=== PATIENT | female | born 1990 | race Caucasian/White ===

== ENCOUNTER 2017-03-18 14:11 | Inpatient (IN) | payer BC, OTHER ==
[~2017-03-18] VITALS: Ht 162.6 cm; Wt 72.5 kg
[2017-03-18] MEDS ORDERED: SOD CHLORIDE 0.9% 1,000 ML IV STA (14:39)
[2017-03-18] MEDS ORDERED: ONDANSETRON 4 MG INJ IV STA (14:39)
[2017-03-18 15:01] LABS: ADD SCAN DIFF NO
[2017-03-18 15:02] LABS: BASOPHILS % 0.3 % (0.0-2.0); HEMATOCRIT 52.6 % (37.0-47.0); HEMOGLOBIN 17.8 g/dl (12.0-16.0); LYMPHOCYTES % 31.3 % (15.0-51.0); MEAN CORPUSCULAR HEMOGLOBIN 32.2 pg (29.0-33.0); MEAN CORPUSCULAR HGB CONC 33.8 g/dl (32.0-37.0); MEAN CORPUSCULAR VOLUME 95.1 fl (82.0-101.0); MEAN PLATELET VOLUME 12.1 fl (7.4-10.4); MONOCYTE # 0.3 10^3/ul (0.3-0.9); MONOCYTES % 10.7 % (0.0-11.0); NEUTROPHIL # 1.8 10^3/ul (1.6-7.5); NEUTROPHILS % 57.4 % (39.0-77.0); PLATELET COUNT 181 10^3/UL (140-415); RED BLOOD COUNT 5.53 10^6/ul (4.20-5.40); RED CELL DISTRIBUTION WIDTH 11.8 % (11.5-14.5); WHITE BLOOD COUNT 3.1 10^3/ul (4.8-10.8)
[2017-03-18 15:30] LABS: ALBUMIN/GLOBULIN RATIO 1.11; BILIRUBIN,INDIRECT 0.3 mg/dl (0-1.1); BILIRUBIN,TOTAL 0.3 mg/dl (0.2-1.3); CALCIUM 9.9 mg/dl (8.4-10.2); CREATININE 0.87 mg/dl (0.44-1.00); POTASSIUM 4.8 mmol/L (3.5-5.1); TOTAL PROTEIN 9.5 g/dl (6.1-8.1)
--- NOTE | 2017-03-18 15:46 | RADRPT ---
PROCEDURE: Chest x-ray CLINICAL INDICATION: Abdominal pain TECHNIQUE: Chest single view COMPARISON: None FINDINGS: The heart is normal in size. The pulmonary vessels are normal in caliber. The lungs are clear. Th e costophrenic angles are sharp. The visualized bony thorax is unremarkable. IMPRESSION: No acute cardiopulmonary disease. There is no free air under the diaphragms RPTAT: HH .Manuel Nelson MD, Date Time Electronically viewed and signed by .Manuel Nelson MD, on 03/18/2017 15:46 .W/
[2017-03-18] MEDS ORDERED: METOCLOPRAMIDE 10 MG INJ IV ONE (16:00)
[2017-03-18 16:03] LABS: ADD UMIC YES; UR ASCORBIC ACID NEGATIVE (NEGATIVE); UR BILIRUBIN (Dip) NEGATIVE (NEGATIVE); UR BLOOD (Dip) 3+ mg/dL (NEGATIVE); UR CLARITY SLIGHTLY CLOUDY (CLEAR); UR COLOR YELLOW (YELLOW); UR GLUCOSE (Dip) 3+ mg/dL (NEGATIVE); UR KETONES (Dip) 2+ mg/dL (NEGATIVE); UR LEUKOCYTE ESTERASE (Dip) NEGATIVE Leu/ul (NEGATIVE); UR NITRITE (Dip) NEGATIVE (NEGATIVE); UR RBC 3 /HPF (0-5); UR SPECIFIC GRAVITY (Dip) 1.026 (1.003-1.030); UR TOTAL PROTEIN (Dip) 2+ mg/dl (NEGATIVE); UR UROBILINOGEN (Dip) NEGATIVE (NEGATIVE)
[2017-03-18] MEDS ORDERED: SOD CHLORIDE 0.9% 1,000 ML IV SCH ×2 (16:14→19:09)
[2017-03-18] MEDS ORDERED: INSULIN HUMAN REGULAR 100 UNIT in SOD CHLORIDE 0.9% 99 ML IV STA (16:14)
--- NOTE | 2017-03-18 16:20 | ERA ---
ER Documentation Chief Complaint Date/Time DATE: 03/18/17 TIME: 16:18 Chief Complaint flu like symptoms, saw pmd yesterday c/o same, body aches, vomiting today HPI Patient is a 26-year-old female who presents with gradual onset, constant, progressive sore throat associated with occipital headache, vomiting, and neck stiffness. She also reports having burning sensation to her eyes. She denies cough, fever, diarrhea. She denies abdominal pain. She saw her suction drum drier operator yesterday, and was prescribed azithromycin. She called him again today, and he told her to come to the ER to rule out meningitis. ROS All systems reviewed and are negative except as per history of present illness. Medications Home Meds Reported Medications Azithromycin* (Azithromycin*) 250 Mg Tablet, 250 MG PO DAILY, #4 TAB TAKE 2 TAB -1 DAY 1 TAB DAILY 03/18/17 Ondansetron Hcl* (Ondansetron Hcl*) 8 Mg Tablet, 8 MG PO TID Y for NAUSEA AND OR VOMITING, TAB 03/18/17 Insulin Glargine,Hum.rec.anlog (Toujeo Solostar) 300 Unit/1 Ml Insuln.pen, 18 UNIT SQ QAM 03/18/17 Insulin Aspart* (Novolog Insulin Pen*) 100 Unit/Ml Soln, 0 SC .SLIDING SCALE AC , EA 3-4 UNITS TID WITH MEALS 03/18/17 Allergies Allergies: Coded Allergies: No Known Allergy (Unverified , 03/18/17) PMhx/Soc Past medical history: Type 1 diabetes Past surgical history: Tonsillectomy, adenoidectomy Social history: Denies tobacco, alcohol or illicit drugs. Medical and Surgical Hx: pt denies Surgical Hx Hx Miscellaneous Medical Probl: Yes (dm1) Hx Alcohol Use: No Hx Substance Use: No Hx Tobacco Use: No Smoking Status: Never smoker FmHx Family History: No coronary disease, No diabetes Physical Exam Vitals Vital Signs Date Time Temp Pulse Resp B/P Pulse Ox O2 Delivery O2 Flow Rate FiO2 03/18/17 18:30 99.0 78 16 118/76 99 Room Air 03/18/17 18:13 99.0 78 16 114/76 99 Room Air 03/18/17 15:18 99.2 03/18/17 14:16 98.5 110 18 140/74 99 Physical Exam Const: Alert, no acute distress Head: Atraumatic Eyes: Normal Conjunctiva, no pallor, no icterus, no injection ENT: Normal External Ears, Nose and Mouth. Tacky mucous membranes Neck: Limited neck flexion. No meningismus. No paraspinal tenderness or spasm noted. Resp: Clear to auscultation bilaterally, no wheezes, no rales Cardio: Mild tachycardia, regular rhythm, no murmurs Abd: Soft, non tender, non distended. Skin: No petechiae or rashes Back: No midline or flank tenderness Ext: No cyanosis, or edema Neur: Awake and alert, cranial nerves II through XII intact bilaterally, strength and sensation full in 4 extremities. Psych: Normal Mood and Affect Result Diagram: 03/18/17 1450 03/18/17 1900 Results 24 hrs Laboratory Tests Test 03/18/17 14:50 03/18/17 14:54 03/18/17 14:57 03/18/17 17:08 White Blood Count 3.110^3/ul Red Blood Count 5.5310^6/ul Hemoglobin 17.8g/dl Hematocrit 52.6% Mean Corpuscular Volume 95.1fl Mean Corpuscular Hemoglobin 32.2pg Mean Corpuscular Hemoglobin Concent 33.8g/dl Red Cell Distribution Width 11.8% Platelet Count 09274^3/UL Mean Platelet Volume 12.1fl Neutrophils % 57.4% Lymphocytes % 31.3% Monocytes % 10.7% Eosinophils % 0.0% Basophils % 0.3% Nucleated Red Blood Cells % 0.0/100WBC Neutrophils # 1.810^3/ul Lymphocytes # 1.010^3/ul Monocytes # 0.310^3/ul Eosinophils # 0.010^3/ul Basophils # 0.010^3/ul Nucleated Red Blood Cells # 0.010^3/ul Prothrombin Time 12.7Sec Prothrombin Time Ratio 1.0 INR International Normalized Ratio 0.95 Sodium Level 141mmol/L Potassium Level 4.8mmol/L Chloride Level 99mmol/L Carbon Dioxide Level 9mmol/L Anion Gap 38 Blood Urea Nitrogen 8mg/dl Creatinine 0.87mg/dl Glucose Level 346mg/dl Hemoglobin A1c 10.9% Calcium Level 9.9mg/dl Phosphorus Level 4.4mg/dl Total Bilirubin 0.3mg/dl Direct Bilirubin 0.00mg/dl Indirect Bilirubin 0.3mg/dl Aspartate Amino Transf (AST/SGOT) 23IU/L Alanine Aminotransferase (ALT/SGPT) 26IU/L Alkaline Phosphatase 80IU/L Total Protein 9.5g/dl Albumin 5.0g/dl Globulin 4.50g/dl Albumin/Globulin Ratio 1.11 Lipase 26U/L Monoscreen Negative Bedside Glucose 300mg/dL 291mg/dL Urine Color YELLOW Urine Clarity SLIGHTLY CLOUDY Urine pH 5.0 Urine Specific [place] 1.026 Urine Ketones 2+mg/dL Urine Nitrite NEGATIVEmg/dL Urine Bilirubin NEGATIVEmg/dL Urine Urobilinogen NEGATIVEmg/dL Urine Leukocyte Esterase NEGATIVELeu/ul Urine Microscopic RBC 3/HPF Urine Microscopic WBC 1/HPF Urine Hemoglobin 3+mg/dL Urine Glucose 3+mg/dL Urine Total Protein 2+mg/dl Test 03/18/17 17:30 03/18/17 18:06 03/18/17 19:00 03/18/17 19:24 Acetone Level (Chemistry) Bedside Glucose 250mg/dL Sodium Level 143mmol/L Potassium Level 5.0mmol/L Chloride Level 110mmol/L Carbon Dioxide Level < 5mmol/L Anion Gap 33 Blood Urea Nitrogen 7mg/dl Creatinine 0.80mg/dl Glucose Level 303mg/dl Calcium Level 7.9mg/dl Phosphorus Level 3.4mg/dl Free Thyroxine 1.19ng/dl Pathologist Review (Hematology) CSF Tubes Submitted 4 CSF Volume 5.5ml CSF Appearance CLEAR CSF Color COLORLESS CSF WBC 2/cmm CSF RBC 0/uL CSF Cell Count Tube # TUBE#4 CSF Mononuclear Cells % (Auto) % CSF Polynuclear WBCs (%) % CSF Glucose 200mg/dl CSF Total Protein 55mg/dl Path Consult Signing Pathologist Test 03/18/17 19:32 Bedside Glucose 221mg/dL Current Medications Medications (Trade) Dose Ordered Sig/Jarod Route PRN Reason Start Time Stop Time Status Last Admin Dose Admin Sodium Chloride (NS) 1,000 ml @ 1,000 mls/hr Q1H STAT IV 03/18/17 14:39 03/18/17 15:38 DC 03/18/17 15:06 Ondansetron HCl (Zofran Inj) 4 mg ONCE STAT IV 03/18/17 14:39 03/18/17 14:41 DC 03/18/17 15:05 Metoclopramide HCl (Reglan) 10 mg ONCE ONCE IV 03/18/17 16:00 03/18/17 16:01 DC 03/18/17 16:14 Dextrose (D50w Syringe) 50 ml Q15M PRN IV For BS 50 or less 03/18/17 16:30 03/18/17 19:17 DC Dextrose 25 ml 25 ml Q15M PRN IV BS between 50-70 03/18/17 16:30 03/18/17 19:17 DC Sodium Chloride 1,000 ml @ 1,000 mls/hr Q1H IV 03/18/17 16:14 03/18/17 17:13 DC 03/18/17 17:04 Lactated Ringer's 1,000 ml @ 1,000 mls/hr Q1H IV 03/18/17 17:14 03/18/17 18:13 DC 03/18/17 17:31 Potassium Chloride 20 meq/ Sodium Chloride 1,010 ml @ 500 mls/hr Q2H2M IV 03/18/17 18:14 03/18/17 20:13 DC 03/18/17 20:17 Insulin Human Regular/Sodium Chloride (Novolin-R/NS) 100 ml @ 0 mls/hr DKA PROTOCOL STAT IV 03/18/17 16:14 03/18/17 16:22 DC 03/18/17 17:08 Diagnostic Test (Pha) (Accu-Chek) 1 ea Q1H XX 03/18/17 16:30 03/18/17 19:16 DC 03/18/17 17:08 Miscellaneous Information (* Miscellaneous Pharmacy Order) HYPOGLYCEMIA TREATMENT HYPOGLYCEM PROTOCOL PRN XX Hypoglycemia (BS < 70) 03/18/17 16:30 03/18/17 19:17 DC IV Flush (NS 3 ml) 3 ml PER PROTOCOL IV 03/18/17 19:30 Ondansetron HCl (Zofran Inj) 4 mg Q6H PRN IV NAUSEA AND/OR VOMITING 03/18/17 19:30 Acetaminophen (Tylenol Tab) 650 mg Q6H PRN PO PAIN LEVEL 1-3 OR FEVER 03/18/17 19:30 Acetaminophen/ Hydrocodone Bitart ([place] (5/325)) 1 tab Q6H PRN PO MODERATE PAIN LEVEL 4-6 03/18/17 19:30 Morphine Sulfate (morphine) 2 mg Q4H PRN IV SEVERE PAIN LEVEL 7-10 03/18/17 19:30 Docusate Sodium (Colace) 100 mg Q12H PRN PO CONSTIPATION 03/18/17 19:30 Magnesium Hydroxide (Milk Of Mag) 30 ml DAILY PRN PO CONSTIPATION 03/18/17 19:30 Sodium Biphosphate/ Sodium Phosphate (Fleet Enema) 133 ml DAILY PRN [place] CONSTIPATION 03/18/17 19:30 Heparin Sodium (Porcine) (Heparin (5000 Units/0.5 ml)) 5,000 unit Q12 SC 03/18/17 21:00 Lorazepam (Ativan) 0.5 mg Q6H PRN IV ANXIETY 03/18/17 19:30 Albuterol/ Ipratropium (Duoneb) 3 ml Q4H RESP THERAPY PRN HHN SHORTNESS OF BREATH 03/18/17 19:30 Hydralazine HCl (Apresoline) 10 mg Q6H PRN IV ELEVATED BLOOD PRESSURE 03/18/17 19:30 Nitroglycerin (Nitroglycerin (Sl Tab) 0.4 Mg) 1 tab Q5M PRN SL ANGINA 03/18/17 19:30 Dextrose (D50w Syringe) 50 ml Q15M PRN IV For BS 50 or less 03/18/17 19:30 Dextrose 25 ml 25 ml Q15M PRN IV BS between 50-70 03/18/17 19:30 Sodium Chloride 1,000 ml @ 1,000 mls/hr Q1H IV 03/18/17 19:09 03/18/17 20:08 DC 03/18/17 20:17 Lactated Ringer's 1,000 ml @ 1,000 mls/hr Q1H IV 03/18/17 20:09 03/18/17 21:08 Potassium Chloride 10 meq/ Sodium Chloride 1,005 ml @ 500 mls/hr Q2H1M IV 03/18/17 21:09 03/18/17 23:08 Insulin Human Regular/Sodium Chloride (Novolin-R/NS) 100 ml @ 0 mls/hr DKA PROTOCOL IV 03/18/17 19:30 Diagnostic Test (Pha) (Accu-Chek) 1 ea Q1H XX 03/18/17 19:30 03/18/17 19:30 Miscellaneous Information HYPOGLYCEMIA TREATMENT HYPOGLYCEM PROTOCOL PRN XX Hypoglycemia (BS < 70) 03/18/17 19:30 Potassium Chloride (KCl 10 MEQ/50 ML SW) 50 ml @ 50 mls/hr K PROTOCOL PRN IVPB PENDING LAB VALUE 03/18/17 19:30 Procedures/MDM MDM: Patient is a 26-year-old female sent to the ER by her suction drum drier operator for complaint of headache with neck stiffness. The patient was seen in the clinic yesterday, and was given a prescription for azithromycin for presumed URI. When the patient called her suction drum drier operator to state that her symptoms were worse today, he advised her to go to the emergency department. In the ER, the patient was found to be mildly tachycardic. She did not have full range of motion of her neck. She was afebrile, and did not have leukocytosis. Lumbar puncture was performed and shows no evidence of meningitis. The patient's labs do show evidence of diabetic ketoacidosis. The patient was given IV fluids and started on an insulin drip. She was given supplemental potassium. She will be admitted to the ICU for further management of her DKA. There is no evidence of urinary tract infection or other acute infection. Lumbar Puncture by me: Patient consented, time out performed, sterilely prepped/draped, anesthetized locally. Anesthesia: 1% lidocaine locally Location: One interspace below the iliac crest Technique: 20 gauge needle with stylet for entry and removal of needle Results: Clear CSF fluid No post procedure complications, bleeding, numbness or weakness. Critical Care Time: 35 minutes Treatments/Evaluations: Close monitoring and treatment of unstable vital signs, cardiorespiratory, and neurologic status, while maintaining tight balance of fluid, respiratory, and cardiac interventions. This time includes discussing the case with the patient and the patient's family. This time does not include all procedures stated elsewhere in this record. This time also includes reviewing old records, labs and radiological studies. This time includes examining and re-examining the patient. Additionally, this time also includes arranging care with admitting and consulting physicians. Departure Diagnosis: Primary Impression: Diabetic ketoacidosis Qualified Code: E10.10 - Diabetic ketoacidosis without coma associated with type 1 diabetes mellitus Additional Impressions: Influenza-like syndrome Headache Qualified Code: R51 - Acute nonintractable headache, unspecified headache type Condition: LOIDA Hill MD Mar 18, 2017 16:20
[2017-03-18] MEDS ORDERED: ACCU-CHEK XX SCH (16:30)
[2017-03-18] MEDS ORDERED: DEXTROSE 50% 50 ML SYRINGE IV PRN ×4 (16:30→19:30)
[2017-03-18 16:47] LABS: INR 0.95; PROTIME 12.7 Sec (12.2-14.2)
[2017-03-18] MEDS ORDERED: NOVO3I SC (17:05)
[2017-03-18] MEDS ORDERED: INSU300I SQ (17:06)
[2017-03-18] MEDS ORDERED: ONDA8TAB83 PO (17:06)
[2017-03-18] MEDS ORDERED: AZIT250T6 PO (17:09)
[2017-03-18] MEDS ORDERED: LACTATED RINGER'S 1,000 ML IV SCH ×2 (17:14→20:09)
[2017-03-18] MEDS ORDERED: POTASSIUM CHLORIDE 20 MEQ in SOD CHLORIDE 0.9% 1,000 ML IV SCH (18:14)
--- NOTE | 2017-03-18 18:23 | RADRPT ---
PROCEDURE: CT brain without contrast CLINICAL INDICATION: Headache TECHNIQUE: CT of the brain without contrast was performed on a multidetector CT scanner, with multi planar reformats. One or more of the following dose reduction techniques were used: Automated expos ure control, adjustment in mA and / or kV according to patient size, use of iterative reconstructive technique. CTDIvol = 44 mGy; DLP = 630 mGy-cm. COMPARISON: None available FINDINGS: No acute intracranial hemorrhage is identified. No extra-axial fluid collection is seen. There is no mass effect. No midline shift is identified. Ventricles and sulci are within normal limits for size and configuration. The density of the brain is within normal limits. Mcneil-white differentiation is preserved. Osseous structures are unremarkable. Mastoid air cells and imaged paranasal sinuses grossly clear. IMPRESSION: Unremarkable noncontrast CT of the brain. RPTAT: VV .Myron Bravo MD, Date Time Electronically viewed and signed by .Myron Bravo MD, MD on 03/18/2017 18:23 .O/
[2017-03-18] MEDS ORDERED: LORAZEPAM 2 MG INJ IV PRN (19:30)
[2017-03-18] MEDS ORDERED: NITROGLYCERIN (SL) 0.4 MG TAB SL PRN (19:30)
[2017-03-18] MEDS ORDERED: ALBUTEROL/IPRATROPIUM (NEB) 3 ML AMP HHN PRN (19:30)
[2017-03-18] MEDS ORDERED: NA PHOSPHATE/BIPHOS 133 ML ENEMA PR PRN (19:30)
[2017-03-18] MEDS ORDERED: hydrALAzine 20 MG INJ IV PRN (19:30)
[2017-03-18] MEDS ORDERED: MAGNESIUM HYDROXIDE 30ML CUP PO PRN (19:30)
[2017-03-18] MEDS ORDERED: ACETAMINOPHEN 325 MG TAB PO PRN (19:30)
[2017-03-18] MEDS ORDERED: ONDANSETRON 4 MG INJ IV PRN (19:30)
[2017-03-18] MEDS: ACCU-CHEK XX SCH ×4 (19:30→23:51)
[2017-03-18] MEDS ORDERED: morphine 2 MG INJ IV PRN (19:30)
[2017-03-18] MEDS ORDERED: INSULIN HUMAN REGULAR 100 UNIT in SOD CHLORIDE 0.9% 99 ML IV SCH (19:30)
[2017-03-18] MEDS ORDERED: HYDROCODONE/APAP (5/325) TAB PO PRN (19:30)
[2017-03-18] MEDS ORDERED: POTASSIUM CHLORIDE 50 ML IVPB PRN (19:30)
[2017-03-18] MEDS ORDERED: NACL 0.9% 3 ML SYG IV SCH (19:30)
[2017-03-18] MEDS ORDERED: DOCUSATE SODIUM 100 MG CAP PO PRN (19:30)
[2017-03-18 19:32] LABS: PATH REVIEW? NO
[2017-03-18 19:39] LABS: BLOOD UREA NITROGEN 7 mg/dl (7-20); CALCIUM 7.9 mg/dl (8.4-10.2); CHLORIDE 110 mmol/L (97-110); GLUCOSE 303 mg/dl (70-220); SODIUM 143 mmol/L (135-144)
[2017-03-18 19:48] LABS: GLUCOSE,CSF 200 mg/dl (50-80)
[2017-03-18 19:57] LABS: CSF COLOR COLORLESS; CSF VOLUME 5.5 ml; CSF#TUBE COUNT TUBE#4; CSF#TUBES REC'D 4
[2017-03-18 20:14] LABS: ANION GAP 33 (8-16)
[2017-03-18 20:16] LABS: CARBON DIOXIDE < 5 mmol/L (21-31)
[2017-03-18] MEDS ORDERED: DEXTROSE 5%-0.45% NACL 1,000 ML IV STA (20:56)
[2017-03-18] MEDS: HEPARIN 5,000 UNIT/0.5 ML VIAL SC SCH (21:05)
[2017-03-18] MEDS ORDERED: POTASSIUM CHLORIDE 10 MEQ in SOD CHLORIDE 0.9% 1,000 ML IV SCH (21:09)
[2017-03-19] VITALS (13 sets, daily range): BP systolic 96–122; BP diastolic 58–80; PULSE 80–100; RESP 17–27; TEMP 98.3; Ht 162.6 cm; Wt 72.5 kg
[2017-03-19] MEDS ORDERED: FAMOTIDINE 20 MG INJ IV ONE
[2017-03-19] MEDS: ACCU-CHEK XX SCH ×21 (00:30→22:18)
[2017-03-19 04:53] LABS: ADD SCAN DIFF NO
[2017-03-19 04:55] LABS: BASOPHILS % 0.3 % (0.0-2.0); HEMATOCRIT 37.4 % (37.0-47.0); LYMPHOCYTES # 1.7 10^3/ul (0.8-2.9); LYMPHOCYTES % 49.9 % (15.0-51.0); MEAN CORPUSCULAR HEMOGLOBIN 32.3 pg (29.0-33.0); MEAN CORPUSCULAR HGB CONC 34.8 g/dl (32.0-37.0); MEAN CORPUSCULAR VOLUME 92.8 fl (82.0-101.0); MEAN PLATELET VOLUME 11.7 fl (7.4-10.4); MONOCYTE # 0.4 10^3/ul (0.3-0.9); MONOCYTES % 11.6 % (0.0-11.0); NEUTROPHIL # 1.3 10^3/ul (1.6-7.5); NEUTROPHILS % 37.9 % (39.0-77.0); PLATELET COUNT 144 10^3/UL (140-415); RED BLOOD COUNT 4.03 10^6/ul (4.20-5.40); WHITE BLOOD COUNT 3.4 10^3/ul (4.8-10.8)
[2017-03-19 05:12] LABS: CHOL/HDL RATIO 5.5 RATIO
[2017-03-19 05:16] LABS: CALCIUM 7.9 mg/dl (8.4-10.2); CREATININE 0.53 mg/dl (0.44-1.00); MAGNESIUM 1.7 mg/dl (1.7-2.5); PHOSPHORUS 1.4 mg/dl (2.5-4.9); POTASSIUM 3.2 mmol/L (3.5-5.1)
[2017-03-19 05:44] LABS: THYROID STIMULATING HORMONE 5.01 MIU/L (0.465-4.680)
[2017-03-19 05:48] LABS: AADO2 Arterial 7.5 mmHg (7.0-24.0); Allen Test ACCEPTAB; Arterial Base Excess -10.6 mmol/L (-3.0-3); Arterial COHb 0.3 % (0.0-3.0); Arterial Fraction of Oxyhgb 97.3 % (93.0-99.0); Arterial MetHb 0.4 % (0.0-1.5); Arterial Total Hemglobin 13.9 g/dl (12.0-18.0); MODE ROOM AIR
--- NOTE | 2017-03-19 08:21 | HP ---
Date/Time of Note Date/Time of Note DATE: 03/19/17 TIME: 08:19 Assessment/Plan Assessment/Plan Assessment/Plan IMPRESSION 1. DKA 2. Headache and neck stiffness: ruled-out meningitis PLAN cont DKA protocol correct electrolytes as needed pain mgmt HPI/ROS Admit Date/Time Admit Date/Time Hx of Present Illness This is a 26 yo female who was sent by her transfer station attendant for eval of meningitis. She c/o generalized bodyache, headache, neck stiffness. In ER, she is found to be in DKA. Head CT is unremarkable. LP was done and is not consistent with meningitis. she has been started on DKA protocol. . PMH/Family/Social Social History Smoking Status: Never smoker Exam/Review of Systems Vital Signs Vitals Vital Signs Date Time Temp Pulse Resp B/P Pulse Ox O2 Delivery O2 Flow Rate FiO2 03/19/17 08:00 98.3 81 16 103/63 99 Room Air Intake and Output 03/18/17 03/18/17 03/19/17 15:00 23:00 07:00 Intake Total 4000 ml Balance 4000 ml Labs Result Diagram: 03/19/17 0442 03/19/17 0442 Medications Medications Current Medications Ondansetron HCl (Zofran Inj) 4 mg Q6H PRN IV NAUSEA AND/OR VOMITING; Start at 19:30 Acetaminophen (Tylenol Tab) 650 mg Q6H PRN PO PAIN LEVEL 1-3 OR FEVER; Start at 19:30 Acetaminophen/ Hydrocodone Bitart ([place] (5/325)) 1 tab Q6H PRN PO MODERATE PAIN LEVEL 4-6; Start 03/18/17 at 19:30 Morphine Sulfate (morphine) 2 mg Q4H PRN IV SEVERE PAIN LEVEL 7-10; Start 03/18 at 19:30 Docusate Sodium (Colace) 100 mg Q12H PRN PO CONSTIPATION; Start 03/18/17 at 19: 30 Magnesium Hydroxide (Milk Of Mag) 30 ml DAILY PRN PO CONSTIPATION; Start at 19:30 Sodium Biphosphate/ Sodium Phosphate (Fleet Enema) 133 ml DAILY PRN [place] CONSTIPATION; Start 03/18/17 at 19:30 Heparin Sodium (Porcine) (Heparin (5000 Units/0.5 ml)) 5,000 unit Q12 SC Last administered on 03/18/17 21:05; Admin Dose 5,000 UNIT; Start 03/18/17 at 21:00 Lorazepam (Ativan) 0.5 mg Q6H PRN IV ANXIETY; Start 03/18/17 at 19:30 Hydralazine HCl (Apresoline) 10 mg Q6H PRN IV ELEVATED BLOOD PRESSURE; Start at 19:30 Nitroglycerin (Nitroglycerin (Sl Tab) 0.4 Mg) 1 tab Q5M PRN SL ANGINA; Start at 19:30 Dextrose (D50w Syringe) 50 ml Q15M PRN IV For BS 50 or less Last administered on 03/19/17 06:31; Admin Dose 50 ML; Start 03/18/17 at 19:30 Dextrose (D50w Syringe) 25 ml Q15M PRN IV BS between 50-70; Start 03/18/17 at 19:30 Diagnostic Test (Pha) (Accu-Chek) 1 ea Q1H XX Last administered on 03/19/17 06 :05; Admin Dose 1 EA; Start 03/18/17 at 19:30 JANIE LINARES MD Mar 19, 2017 08:20
[2017-03-19] MEDS: HEPARIN 5,000 UNIT/0.5 ML VIAL SC SCH ×2 (09:40→21:52)
--- NOTE | 2017-03-19 14:24 | PN ---
Date/Time of Note Date/Time of Note DATE: 03/19/17 TIME: 14:20 Assessment/Plan VTE Prophylaxis VTE Prophylaxis Intervention: heparin Assessment/Plan Chief Complaint/Hosp Course Assessment and plan: 26 yo female who was sent by her electric screw driver operator for eval of meningitis after complaining of bodyache, headache, neck stiffness, and also found this admission with DKA. 1. Headache/neck stiffness: Lumbar puncture was performed. Only abnormalities were slightly elevated glucose levels. Patient possibly could be suffering from aseptic meningitis. -Continue pain control medications, IV fluids, monitor for now. If there are any further abnormality such as fever or worsening symptoms, consider infectious disease consult. Follow final culture results 2. Elevated blood sugars: Patient had signs of DKA. Has been placed on IV insulin. -Continue to treat elevated blood sugars and monitor basic metabolic panel including anion gap -Follow-up A1c, consider endocrinology consult. 3. GI prophylaxis: PPI Problems: Subjective 24 Hr Interval Summary Free Text/Dictation Patient still complaining of headache symptoms. No acute events overnight otherwise. Does admit to recent travel in [place] and [facility] including being outdoors. Denies any sick contacts however Exam/Review of Systems Vital Signs Vitals Vital Signs Date Time Temp Pulse Resp B/P Pulse Ox O2 Delivery O2 Flow Rate FiO2 03/19/17 14:03 90 16 127/89 99 Room Air 03/19/17 08:00 98.3 Intake and Output 03/18/17 03/18/17 03/19/17 15:00 23:00 07:00 Intake Total 4000 ml Balance 4000 ml Exam Const: Alert, answering questions, in mild distress complaining of some headache. Head: Atraumatic Eyes: Normal Conjunctiva, no pallor, no icterus, no injection ENT: Normal External Ears, Nose and Mouth. Tacky mucous membranes Neck: Limited neck flexion. No meningismus. No paraspinal tenderness or spasm noted. Resp: Clear to auscultation bilaterally, no wheezes, no rales Cardio: Mild tachycardia, regular rhythm, no murmurs Abd: Soft, non tender, non distended. Skin: No petechiae or rashes Back: No midline or flank tenderness Ext: No cyanosis, or edema Neur: Awake and alert, cranial nerves II through XII intact bilaterally, strength and sensation full in 4 extremities. Psych: Normal Mood and Affect Results Result Diagram: 03/19/17 9902 03/19/17 0442 Results 24 hrs Laboratory Tests Test 03/18/17 14:50 03/18/17 14:54 03/18/17 14:57 03/18/17 17:08 White Blood Count 3.1 L Red Blood Count 5.53 H Hemoglobin 17.8 H Hematocrit 52.6 H Mean Corpuscular Volume 95.1 Mean Corpuscular Hemoglobin 32.2 Mean Corpuscular Hemoglobin Concent 33.8 Red Cell Distribution Width 11.8 Platelet Count 181 Mean Platelet Volume 12.1 H Neutrophils % 57.4 Lymphocytes % 31.3 Monocytes % 10.7 Eosinophils % 0.0 Basophils % 0.3 Nucleated Red Blood Cells % 0.0 Neutrophils # 1.8 Lymphocytes # 1.0 Monocytes # 0.3 Eosinophils # 0.0 Basophils # 0.0 Nucleated Red Blood Cells # 0.0 Prothrombin Time 12.7 Prothrombin Time Ratio 1.0 INR International Normalized Ratio 0.95 Sodium Level 141 Potassium Level 4.8 Chloride Level 99 Carbon Dioxide Level 9 *L Anion Gap 38 H Blood Urea Nitrogen 8 Creatinine 0.87 Glucose Level 346 H Hemoglobin A1c 10.9 H Calcium Level 9.9 Phosphorus Level 4.4 Total Bilirubin 0.3 Direct Bilirubin 0.00 Indirect Bilirubin 0.3 Aspartate Amino Transf (AST/SGOT) 23 Alanine Aminotransferase (ALT/SGPT) 26 Alkaline Phosphatase 80 Total Protein 9.5 H Albumin 5.0 H Globulin 4.50 H Albumin/Globulin Ratio 1.11 Lipase 26 Monoscreen Negative Bedside Glucose 300 H 291 H Urine Color YELLOW Urine Clarity SLIGHTLY CLOUDY A Urine pH 5.0 Urine Specific [place] 1.026 Urine Ketones 2+ H Urine Nitrite NEGATIVE Urine Bilirubin NEGATIVE Urine Urobilinogen NEGATIVE Urine Leukocyte Esterase NEGATIVE Urine Microscopic RBC 3 Urine Microscopic WBC 1 Urine Hemoglobin 3+ H Urine Glucose 3+ H Urine Total Protein 2+ H Test 03/18/17 17:30 03/18/17 18:06 03/18/17 19:00 03/18/17 19:24 Acetone Level (Chemistry) Bedside Glucose 250 H Sodium Level 143 Potassium Level 5.0 Chloride Level 110 # Carbon Dioxide Level < 5 *L Anion Gap 33 H Blood Urea Nitrogen 7 Creatinine 0.80 Glucose Level 303 H Calcium Level 7.9 L Phosphorus Level 3.4 Free Thyroxine 1.19 Pathologist Review (Hematology) CSF Tubes Submitted 4 CSF Volume 5.5 CSF Appearance CLEAR CSF Color COLORLESS CSF WBC 2 CSF RBC 0 CSF Cell Count Tube # TUBE#4 CSF Mononuclear Cells % (Auto) CSF Polynuclear WBCs (%) CSF Glucose 200 H CSF Total Protein 55 Path Consult Signing Pathologist Test 03/18/17 19:32 03/18/17 20:46 03/18/17 22:03 03/18/17 23:47 Bedside Glucose 221 H 189 145 130 Test 03/18/17 23:57 03/19/17 01:25 03/19/17 02:37 03/19/17 04:35 Bedside Glucose 156 120 130 108 Test 03/19/17 04:42 03/19/17 04:43 03/19/17 05:45 03/19/17 06:03 White Blood Count 3.4 L Red Blood Count 4.03 #L Hemoglobin 13.0 # Hematocrit 37.4 # Mean Corpuscular Volume 92.8 Mean Corpuscular Hemoglobin 32.3 Mean Corpuscular Hemoglobin Concent 34.8 Red Cell Distribution Width 12.0 Platelet Count 144 # Mean Platelet Volume 11.7 H Neutrophils % 37.9 L Lymphocytes % 49.9 Monocytes % 11.6 H Eosinophils % 0.0 Basophils % 0.3 Nucleated Red Blood Cells % 0.0 Neutrophils # 1.3 L Lymphocytes # 1.7 Monocytes # 0.4 Eosinophils # 0.0 Basophils # 0.0 Nucleated Red Blood Cells # 0.0 Sodium Level 140 Potassium Level 3.2 L Chloride Level 112 H Carbon Dioxide Level 15 #L Anion Gap 16 # Blood Urea Nitrogen 3 L Creatinine 0.53 Glucose Level 100 # Hemoglobin A1c 11.0 H Calcium Level 7.9 L Phosphorus Level 1.4 #L Magnesium Level 1.7 Triglycerides Level 92 Cholesterol Level 160 LDL Cholesterol, Calculated 113 HDL Cholesterol 29 L Cholesterol/HDL Ratio 5.5 Thyroid Stimulating Hormone (TSH) 5.010 H Blood Gas Specimen Source Blood arterial Arterial Blood Date Drawn 03/19/2017 5:35:27 AM Arterial Blood pH (Temp corrected) 7.315 L Arterial Blood pCO2 (Temp correct) 28.1 L Arterial Blood pO2 (Temp corrected) 108.6 H Arterial Blood HCO3 14.0 L Arterial Blood Base Excess -10.6 L Arterial Blood Oxygen Saturation 98.0 Abhilash Test ACCEPTAB Arterial Blood Gas Puncture Site Right Radial Arterial Blood Carboxyhemoglobin 0.3 Arterial Blood Methemoglobin 0.4 Blood Gas A-a O2 Differential 7.5 Oxyhemoglobin Percent 97.3 Total Hemoglobin 13.9 Blood Gas Temperature 37.0 Blood Gas Modality ROOM AIR FiO2 21.0 Blood Gas Notified Whom UP Blood Gas Notified Time 03/19/2017 5:48:10 AM Bedside Glucose 76 Test 03/19/17 06:24 03/19/17 06:55 03/19/17 08:10 03/19/17 09:21 Bedside Glucose 68 L 165 174 153 Test 03/19/17 11:02 03/19/17 12:22 03/19/17 13:42 Bedside Glucose 182 139 110 Medications Medications Current Medications Ondansetron HCl (Zofran Inj) 4 mg Q6H PRN IV NAUSEA AND/OR VOMITING; Start at 19:30 Acetaminophen (Tylenol Tab) 650 mg Q6H PRN PO PAIN LEVEL 1-3 OR FEVER; Start at 19:30 Acetaminophen/ Hydrocodone Bitart ([place] (5/325)) 1 tab Q6H PRN PO MODERATE PAIN LEVEL 4-6; Start 03/18/17 at 19:30 Morphine Sulfate (morphine) 2 mg Q4H PRN IV SEVERE PAIN LEVEL 7-10; Start 03/18 at 19:30 Docusate Sodium (Colace) 100 mg Q12H PRN PO CONSTIPATION; Start 03/18/17 at 19: 30 Magnesium Hydroxide (Milk Of Mag) 30 ml DAILY PRN PO CONSTIPATION; Start at 19:30 Sodium Biphosphate/ Sodium Phosphate (Fleet Enema) 133 ml DAILY PRN [place] CONSTIPATION; Start 03/18/17 at 19:30 Heparin Sodium (Porcine) (Heparin (5000 Units/0.5 ml)) 5,000 unit Q12 SC Last administered on 03/19/17t 09:40; Admin Dose 5,000 UNIT; Start 03/18/17 at 21:00 Lorazepam (Ativan) 0.5 mg Q6H PRN IV ANXIETY; Start 03/18/17 at 19:30 Hydralazine HCl (Apresoline) 10 mg Q6H PRN IV ELEVATED BLOOD PRESSURE; Start at 19:30 Nitroglycerin (Nitroglycerin (Sl Tab) 0.4 Mg) 1 tab Q5M PRN SL ANGINA; Start at 19:30 Dextrose (D50w Syringe) 50 ml Q15M PRN IV For BS 50 or less Last administered on 03/19/17 06:31; Admin Dose 50 ML; Start 03/18/17 at 19:30 Dextrose (D50w Syringe) 25 ml Q15M PRN IV BS between 50-70; Start 03/18/17 at 19:30 Diagnostic Test (Pha) 1 ea 1 ea Q1H XX Last administered on 03/19/17 13:42; Admin Dose 1 EA; Start 03/18/17 at 19:30 Potassium Phosphate/Sodium Chloride (K Phos (Meq)/NS) 263.6364 ml @ 65.909 m... ONCE ONCE IVPB ; Start 03/19/17 at 14:30; Stop 03/19/17 at 18:29; Status SHAHZAD APONTE Mar 19, 2017 14:24
[2017-03-19] MEDS ORDERED: GUAIFENESIN 20 MG/ML 5ML CUP PO PRN (15:30)
[2017-03-19 15:51] LABS: ANION GAP 17 (8-16); CALCIUM 8.5 mg/dl (8.4-10.2); CARBON DIOXIDE 17 mmol/L (21-31); CHLORIDE 111 mmol/L (97-110); CREATININE 0.54 mg/dl (0.44-1.00); GLUCOSE 85 mg/dl (70-220); SODIUM 142 mmol/L (135-144)
[2017-03-19] MEDS ORDERED: POTASSIUM PHOSPHATE 60 MEQ in SOD CHLORIDE 0.9% 250 ML IVPB SCH (16:00)
[2017-03-19 16:22] LABS: BLOOD UREA NITROGEN < 2 mg/dl (7-20); POTASSIUM 2.8 mmol/L (3.5-5.1)
[2017-03-19] MEDS ORDERED: POTASSIUM CHLORIDE (SR) 10 MEQ TAB PO ONE (18:00)
--- NOTE | 2017-03-19 18:12 | CONS ---
Date/Time of Note Date/Time of Note DATE: 03/19/17 TIME: 17:57 Assessment/Plan Assessment/Plan Chief Complaint/Hosp Course Pt. p/w some sort of viral syndrome (? West Nile w/o meningitis) suggested by low WBC and symptoms. Will defer the management of this to primary team. Problems: (1) Type 1 diabetes mellitus with ketoacidosis and without coma Status: Acute Comment: Pt. needs electrolyte replacement of K and P. Pt. on insufficient dextrose to be able to maintain sufficient insulin rate to fix her DKA. Insulin has been turned off due to low glucose. Will change IVF from D5 1/2NS to D10 1/4NS and increase rate from 125 mL/hr to 200 mL/hr. If this is not sufficient for her to be able to maintain insulin drip at 0.1 units/kg/hr (7 units/hr) w/o causing hypoglycemia, will increase rate of IVF. DKA near resolved vs. numbers on presentation and expect rapid resolution at this rate of insulin drip. Will follow w/ you. (2) Type 1 diabetes mellitus with hyperglycemia Status: Chronic Comment: Will start weight based insulin, lantus 15 units tonight, 7 units qac tomorrow when she resumes diet. Will need diabetes education. Consultation Date/Type/Reason Admit Date/Time 03/18/2017 @ 1999 Date of Consultation: Mar 19, 2017 Type of Consultation: Endocrinology Reason for Consultation DKA Referring Provider: SHAHZAD DECKER Hx of Present Illness 26 y/o C F w/ 1 y. h/o T1DM which she admits to taking less than adequate care of, in [facility] until 4 days ago when she developed headache, neck stiffness, photophobia, cough, diffuse myalgias. Went to see PMD 2 days ago who did some testing. Yesterday pt. developed N/V and abd pain. Called her back yesterday and told her that her A1c was high and that she might have meningitis and she should go to the ER. In ER pt. had LP that did not show evidence of meningitis but did have evidence of DKA w/ CO2 9, open AG, glucose > 340 mg/dL, and ketonuria. Pt. started on insulin drip and endo consulted. Constitutional: other (body aches), requiring IVF Eyes: other (photophobia) ENT: no complaints Respiratory: cough Cardiovascular: no complaints Gastrointestinal: nausea, pain, vomiting Genitourinary: no complaints Musculoskeletal: neck pain Neurologic: headache Past Medical History Medical History: diabetes (T1) Past Surgical History Past Surgical Hx: other (T&A) Family History Significant Family History: diabetes (T1 in sister), renal disease (mother), other (hyperparathyroidism in mother) Social History toma Ambrosioi, , lives most of year in [facility] [place], spends arias in [facility], has B.A, 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, single, no children Alcohol Use: occasionally Smoking Status: Never smoker Drug Use: none Exam/Review of Systems Vital Signs Vitals VS - Last 72 Hours, by Label Date Time Temp Pulse Resp B/P Pulse Ox O2 Delivery O2 Flow Rate FiO2 03/19/17 17:00 95 22 113/71 99 Room Air 03/19/17 16:30 88 18 109/70 100 Room Air 03/19/17 16:03 84 03/19/17 16:00 88 18 104/67 99 Room Air 03/19/17 15:30 97.5 88 18 122/72 98 Room Air 03/19/17 14:03 90 16 127/89 99 Room Air 03/19/17 12:11 79 16 111/70 99 Room Air 03/19/17 08:00 98.3 81 16 103/63 99 Room Air 03/19/17 06:30 79 16 96/59 99 Room Air 03/19/17 06:10 80 16 101/52 99 Room Air 03/19/17 04:35 77 16 105/68 99 Room Air 03/19/17 02:35 78 16 116/71 99 Room Air 03/19/17 00:35 94 16 99/72 99 Room Air 03/18/17 22:35 91 16 115/66 99 Room Air 03/18/17 20:30 99.0 77 16 122/73 99 Room Air 03/18/17 18:30 99.0 78 16 118/76 99 Room Air 03/18/17 18:13 99.0 78 16 114/76 99 Room Air 03/18/17 15:18 99.2 03/18/17 14:16 98.5 110 18 140/74 99 Vital Signs Date Time Temp Pulse Resp B/P Pulse Ox O2 Delivery O2 Flow Rate FiO2 03/19/17 17:00 95 22 113/71 99 Room Air 03/19/17 15:30 97.5 Intake and Output 03/18/17 03/18/17 03/19/17 15:00 23:00 07:00 Intake Total 4000 ml Balance 4000 ml Exam Constitutional: alert, oriented, well developed Psych: nl mood/affect, no complaints Eyes: EOMI, PERRL, nl conjunctiva, nl lids, nl sclera ENMT: mucosa pink and moist, nl external ears & nose Neck: non-tender, supple, No bruits, No masses, No thyromegaly Respiratory: clear to auscultation, normal air movement Cardiovascular: nl pulses, regular rate and rhythm, No edema, No murmurs/extra sounds, No rub Gastrointestinal: bowel sounds, nl liver, spleen, non-tender, soft, No mass, No rebound or guarding Musculoskeletal: nl extremities to inspection Extremities: normal pulses, No clubbing, No cyanosis, No edema Neurological: BOX ESTIMATOR II-XII intact, nl mental status, nl speech, nl strength Additional Comments Bedside Glucose - 72 Hours Test 03/18/17 14:54 03/18/17 17:08 03/18/17 18:06 03/18/17 19:32 Bedside Glucose 300mg/dL (70-220) H 291mg/dL (70-220) H 250mg/dL (70-220) H 221mg/dL (70-220) H Test 03/18/17 20:46 03/18/17 22:03 03/18/17 23:47 03/18/17 23:57 Bedside Glucose 189mg/dL (70-220) 145mg/dL (70-220) 130mg/dL (70-220) 156mg/dL (70-220) Test 03/19/17 01:25 03/19/17 02:37 03/19/17 04:35 03/19/17 06:03 Bedside Glucose 120mg/dL (70-220) 130mg/dL (70-220) 108mg/dL (70-220) 76mg/dL (70-220) Test 03/19/17 06:24 03/19/17 06:55 03/19/17 08:10 03/19/17 09:21 Bedside Glucose 68mg/dL (70-220) L 165mg/dL (70-220) 174mg/dL (70-220) 153mg/dL (70-220) Test 03/19/17 11:02 03/19/17 12:22 03/19/17 13:42 03/19/17 15:16 Bedside Glucose 182mg/dL (70-220) 139mg/dL (70-220) 110mg/dL (70-220) 81mg/dL (70-220) Test 03/19/17 16:29 03/19/17 17:26 03/19/17 17:45 Bedside Glucose 77mg/dL (70-220) 64mg/dL (70-220) L 152mg/dL (70-220) Results Result Diagram: 03/19/17 0442 03/19/17 1515 Results 24 hrs Laboratory Tests Test 03/18/17 18:06 03/18/17 19:00 03/18/17 19:24 03/18/17 19:32 Bedside Glucose 250 H 221 H Sodium Level 143 Potassium Level 5.0 Chloride Level 110 # Carbon Dioxide Level < 5 *L Anion Gap 33 H Blood Urea Nitrogen 7 Creatinine 0.80 Glucose Level 303 H Calcium Level 7.9 L Phosphorus Level 3.4 Free Thyroxine 1.19 Pathologist Review (Hematology) CSF Tubes Submitted 4 CSF Volume 5.5 CSF Appearance CLEAR CSF Color COLORLESS CSF WBC 2 CSF RBC 0 CSF Cell Count Tube # TUBE#4 CSF Mononuclear Cells % (Auto) CSF Polynuclear WBCs (%) CSF Glucose 200 H CSF Total Protein 55 Path Consult Signing Pathologist Test 03/18/17 20:46 03/18/17 22:03 03/18/17 23:47 03/18/17 23:57 Bedside Glucose 189 145 130 156 Test 03/19/17 01:25 03/19/17 02:37 03/19/17 04:35 03/19/17 04:42 Bedside Glucose 120 130 108 White Blood Count 3.4 L Red Blood Count 4.03 #L Hemoglobin 13.0 # Hematocrit 37.4 # Mean Corpuscular Volume 92.8 Mean Corpuscular Hemoglobin 32.3 Mean Corpuscular Hemoglobin Concent 34.8 Red Cell Distribution Width 12.0 Platelet Count 144 # Mean Platelet Volume 11.7 H Neutrophils % 37.9 L Lymphocytes % 49.9 Monocytes % 11.6 H Eosinophils % 0.0 Basophils % 0.3 Nucleated Red Blood Cells % 0.0 Neutrophils # 1.3 L Lymphocytes # 1.7 Monocytes # 0.4 Eosinophils # 0.0 Basophils # 0.0 Nucleated Red Blood Cells # 0.0 Sodium Level 140 Potassium Level 3.2 L Chloride Level 112 H Carbon Dioxide Level 15 #L Anion Gap 16 # Blood Urea Nitrogen 3 L Creatinine 0.53 Glucose Level 100 # Hemoglobin A1c 11.0 H Calcium Level 7.9 L Phosphorus Level 1.4 #L Magnesium Level 1.7 Test 03/19/17 04:43 03/19/17 05:45 03/19/17 06:03 03/19/17 06:24 Triglycerides Level 92 Cholesterol Level 160 LDL Cholesterol, Calculated 113 HDL Cholesterol 29 L Cholesterol/HDL Ratio 5.5 Thyroid Stimulating Hormone (TSH) 5.010 H Blood Gas Specimen Source Blood arterial Arterial Blood Date Drawn 03/19/2017 5:35:27 AM Arterial Blood pH (Temp corrected) 7.315 L Arterial Blood pCO2 (Temp correct) 28.1 L Arterial Blood pO2 (Temp corrected) 108.6 H Arterial Blood HCO3 14.0 L Arterial Blood Base Excess -10.6 L Arterial Blood Oxygen Saturation 98.0 Abhilash Test ACCEPTAB Arterial Blood Gas Puncture Site Right Radial Arterial Blood Carboxyhemoglobin 0.3 Arterial Blood Methemoglobin 0.4 Blood Gas A-a O2 Differential 7.5 Oxyhemoglobin Percent 97.3 Total Hemoglobin 13.9 Blood Gas Temperature 37.0 Blood Gas Modality ROOM AIR FiO2 21.0 Blood Gas Notified Whom UP Blood Gas Notified Time 03/19/2017 5:48:10 AM Bedside Glucose 76 68 L Test 03/19/17 06:55 03/19/17 08:10 03/19/17 09:21 03/19/17 11:02 Bedside Glucose 165 174 153 182 Test 03/19/17 12:22 03/19/17 13:42 03/19/17 15:15 03/19/17 15:16 Bedside Glucose 139 110 81 Sodium Level 142 Potassium Level 2.8 *L Chloride Level 111 H Carbon Dioxide Level 17 L Anion Gap 17 H Blood Urea Nitrogen < 2 L Creatinine 0.54 Glucose Level 85 Calcium Level 8.5 Test 03/19/17 16:29 03/19/17 17:26 Bedside Glucose 77 64 L Medications Medications Current Medications Ondansetron HCl (Zofran Inj) 4 mg Q6H PRN IV NAUSEA AND/OR VOMITING; Start at 19:30 Acetaminophen (Tylenol Tab) 650 mg Q6H PRN PO PAIN LEVEL 1-3 OR FEVER; Start at 19:30 Acetaminophen/ Hydrocodone Bitart ([place] (5/325)) 1 tab Q6H PRN PO MODERATE PAIN LEVEL 4-6; Start 03/18/17 at 19:30 Morphine Sulfate (morphine) 2 mg Q4H PRN IV SEVERE PAIN LEVEL 7-10; Start 03/18 at 19:30 Docusate Sodium (Colace) 100 mg Q12H PRN PO CONSTIPATION; Start 03/18/17 at 19: 30 Magnesium Hydroxide (Milk Of Mag) 30 ml DAILY PRN PO CONSTIPATION; Start at 19:30 Sodium Biphosphate/ Sodium Phosphate (Fleet Enema) 133 ml DAILY PRN MD CONSTIPATION; Start 03/18/17 at 19:30 Heparin Sodium (Porcine) (Heparin (5000 Units/0.5 ml)) 5,000 unit Q12 SC Last administered on 03/19/17 09:40; Admin Dose 5,000 UNIT; Start 03/18/17 at 21:00 Lorazepam (Ativan) 0.5 mg Q6H PRN IV ANXIETY; Start 03/18/17 at 19:30 Hydralazine HCl (Apresoline) 10 mg Q6H PRN IV ELEVATED BLOOD PRESSURE; Start at 19:30 Nitroglycerin (Nitroglycerin (Sl Tab) 0.4 Mg) 1 tab Q5M PRN SL ANGINA; Start at 19:30 Dextrose (D50w Syringe) 50 ml Q15M PRN IV For BS 50 or less Last administered on 03/19/17 06:31; Admin Dose 50 ML; Start 03/18/17 at 19:30 Dextrose (D50w Syringe) 25 ml Q15M PRN IV BS between 50-70 Last administered on 03/19/17 17:31; Admin Dose 25 ML; Start 03/18/17 at 19:30 Diagnostic Test (Pha) 1 ea 1 ea Q1H XX Last administered on 03/19/17 17:34; Admin Dose 1 EA; Start 03/18/17 at 19:30 Potassium Phosphate/Sodium Chloride (K Phos (Meq)/NS) 263.6364 ml @ 65.909 m... ONCE IVPB ; Start 03/19/17 at 16:00; Stop 03/19/17 at 19:59 Guaifenesin (Robitussin Liquid Cup) 200 mg Q4H PRN PO COUGH; Start 03/19/17 at 15:30 Potassium Chloride (Klor-Con 10) 30 meq ONCE ONCE PO ; Start 03/19/17 at 18:00 ; Stop 03/19/17 at 18:01; Status SHYANN ROGERS MD Mar 19, 2017 18:08
[2017-03-19] MEDS: INSULIN HUMAN REGULAR 100 UNIT in SOD CHLORIDE 0.9% 99 ML IV SCH (19:00)
[2017-03-19] MEDS: INSULIN GLARGINE [LANtus] 3 ML PEN SC SCH (20:12)
[2017-03-19] MEDS: POTASSIUM CHLORIDE 40 MEQ in DEXTROSE 10%/0.2% NACL 1,000 ML IV SCH (21:10)
[2017-03-20] VITALS (18 sets, daily range): BP systolic 101–132; BP diastolic 54–88; PULSE 75–97; RESP 12–21
[2017-03-20] MEDS: ACCU-CHEK XX SCH ×16 (00:21→13:05)
[2017-03-20] MEDS: POTASSIUM CHLORIDE 40 MEQ in DEXTROSE 10%/0.2% NACL 1,000 ML IV SCH ×3 (02:11→10:18)
[2017-03-20] MEDS: INSULIN HUMAN REGULAR 100 UNIT in SOD CHLORIDE 0.9% 99 ML IV SCH ×2 (03:24→12:07)
[2017-03-20 05:25] LABS: ADD SCAN DIFF NO
[2017-03-20 05:32] LABS: ABNORMAL IP MESSAGE 1; BASOPHILS % 0.6 % (0.0-2.0); EOSINOPHILS % 0.3 % (0.0-7.0); HEMATOCRIT 39.5 % (37.0-47.0); HEMOGLOBIN 14.1 g/dl (12.0-16.0); LYMPHOCYTES # 1.9 10^3/ul (0.8-2.9); LYMPHOCYTES % 59.6 % (15.0-51.0); MEAN CORPUSCULAR HEMOGLOBIN 32.3 pg (29.0-33.0); MEAN CORPUSCULAR HGB CONC 35.7 g/dl (32.0-37.0); MEAN CORPUSCULAR VOLUME 90.4 fl (82.0-101.0); MEAN PLATELET VOLUME 11.4 fl (7.4-10.4); MONOCYTE # 0.4 10^3/ul (0.3-0.9); MONOCYTES % 11.7 % (0.0-11.0); NEUTROPHIL # 0.9 10^3/ul (1.6-7.5); NEUTROPHILS % 27.5 % (39.0-77.0); PLATELET COUNT 147 10^3/UL (140-415); RED BLOOD COUNT 4.37 10^6/ul (4.20-5.40); RED CELL DISTRIBUTION WIDTH 11.9 % (11.5-14.5); WHITE BLOOD COUNT 3.2 10^3/ul (4.8-10.8)
[2017-03-20 05:57] LABS: ANION GAP 17 (8-16); CALCIUM 8.7 mg/dl (8.4-10.2); CARBON DIOXIDE 22 mmol/L (21-31); CHLORIDE 106 mmol/L (97-110); CREATININE 0.56 mg/dl (0.44-1.00); GLUCOSE 176 mg/dl (70-220); POTASSIUM 3.5 mmol/L (3.5-5.1); SODIUM 141 mmol/L (135-144)
[2017-03-20 05:59] LABS: BLOOD UREA NITROGEN < 2 mg/dl (7-20)
[2017-03-20 06:08] LABS: MAGNESIUM 1.3 mg/dl (1.7-2.5); PHOSPHORUS 3.4 mg/dl (2.5-4.9)
[2017-03-20] MEDS: INSULIN ASPART [NOVOLOG] 3 ML PEN SC SCH ×6 (07:35→20:54)
[2017-03-20] MEDS: HEPARIN 5,000 UNIT/0.5 ML VIAL SC SCH ×2 (09:00→20:58)
--- NOTE | 2017-03-20 09:29 | PN ---
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 1. Headache/neck stiffness: less smpt now. Lumbar puncture was performed. Only abnormalities were slightly elevated glucose levels. Patient possibly could be suffering from aseptic meningitis vs flu. -Continue pain control medications, IV fluids, monitor for now. If there are any further abnormality such as fever or worsening symptoms, consider infectious disease consult. Follow final culture results 2. Elevated blood sugars: + DKA. Has been placed on IV insulin, IVF's, slowly improving, appreciate endocrine consult. -Continue to treat elevated blood sugars and monitor basic metabolic panel including anion gap -A1c = 11, monitor 3. GI prophylaxis: PPI Critical care time today = 40 min. Problems: Subjective 24 Hr Interval Summary Free Text/Dictation Pt seen by endo team, still on insulin drip, still some BERNARD, but feels better overall. Exam/Review of Systems Vital Signs Vitals Vital Signs Date Time Temp Pulse Resp B/P Pulse Ox O2 Delivery O2 Flow Rate FiO2 03/20/17 08:00 97.9 82 14 115/76 99 Room Air Intake and Output 03/19/17 03/19/17 03/20/17 15:00 23:00 07:00 Intake Total 428 ml 1449 ml Balance 428 ml 1449 ml Exam Const: Alert, answering questions, in mild distress Head: Atraumatic Eyes: Normal Conjunctiva, no pallor, no icterus, no injection ENT: Normal External Ears, Nose and Mouth. Neck: Limited neck flexion. No meningismus. No paraspinal tenderness or spasm noted. Resp: Clear to auscultation bilaterally, no wheezes, no rales Cardio: Mild tachycardia, regular rhythm, no murmurs Abd: Soft, non tender, non distended. Skin: No petechiae or rashes Back: No midline or flank tenderness Ext: No cyanosis, or edema Neur: Awake and alert, cranial nerves II through XII intact bilaterally, strength and sensation full in 4 extremities. Psych: Normal Mood and Affect Results Result Diagram: 03/20/17 0515 03/20/17 0515 Results 24 hrs Laboratory Tests Test 03/19/17 11:02 03/19/17 12:22 03/19/17 13:42 03/19/17 15:15 Bedside Glucose 182 139 110 Sodium Level 142 Potassium Level 2.8 *L Chloride Level 111 H Carbon Dioxide Level 17 L Anion Gap 17 H Blood Urea Nitrogen < 2 L Creatinine 0.54 Glucose Level 85 Calcium Level 8.5 Test 03/19/17 15:16 03/19/17 16:29 03/19/17 17:26 03/19/17 17:45 Bedside Glucose 81 77 64 L 152 Test 03/19/17 18:06 03/19/17 19:02 03/19/17 20:03 03/19/17 21:13 Bedside Glucose 142 119 112 99 Test 03/19/17 22:13 03/19/17 23:18 03/20/17 00:12 03/20/17 01:02 Bedside Glucose 144 170 196 213 Test 03/20/17 02:10 03/20/17 03:22 03/20/17 04:23 03/20/17 05:15 Bedside Glucose 129 187 170 White Blood Count 3.2 L Red Blood Count 4.37 Hemoglobin 14.1 Hematocrit 39.5 Mean Corpuscular Volume 90.4 Mean Corpuscular Hemoglobin 32.3 Mean Corpuscular Hemoglobin Concent 35.7 Red Cell Distribution Width 11.9 Platelet Count 147 Mean Platelet Volume 11.4 H Neutrophils % 27.5 L Lymphocytes % 59.6 H Monocytes % 11.7 H Eosinophils % 0.3 Basophils % 0.6 Nucleated Red Blood Cells % 0.0 Neutrophils # 0.9 L Lymphocytes # 1.9 Monocytes # 0.4 Eosinophils # 0.0 Basophils # 0.0 Nucleated Red Blood Cells # 0.0 Sodium Level 141 Potassium Level 3.5 Chloride Level 106 Carbon Dioxide Level 22 Anion Gap 17 H Blood Urea Nitrogen < 2 L Creatinine 0.56 Glucose Level 176 Calcium Level 8.7 Phosphorus Level 3.4 # Magnesium Level 1.3 L Test 03/20/17 05:25 03/20/17 06:18 03/20/17 07:17 03/20/17 08:06 Bedside Glucose 164 176 185 168 Test 03/20/17 09:02 Bedside Glucose 153 Medications Medications Current Medications Ondansetron HCl (Zofran Inj) 4 mg Q6H PRN IV NAUSEA AND/OR VOMITING Last administered on 03/20/17 04:26; Admin Dose 4 MG; Start 03/18/17 at 19:30 Acetaminophen (Tylenol Tab) 650 mg Q6H PRN PO PAIN LEVEL 1-3 OR FEVER; Start at 19:30 Acetaminophen/ Hydrocodone Bitart ([place] (5/325)) 1 tab Q6H PRN PO MODERATE PAIN LEVEL 4-6; Start 03/18/17 at 19:30 Morphine Sulfate (morphine) 2 mg Q4H PRN IV SEVERE PAIN LEVEL 7-10; Start 03/18 at 19:30 Docusate Sodium (Colace) 100 mg Q12H PRN PO CONSTIPATION; Start 03/18/17 at 19: 30 Magnesium Hydroxide (Milk Of Mag) 30 ml DAILY PRN PO CONSTIPATION; Start at 19:30 Sodium Biphosphate/ Sodium Phosphate (Fleet Enema) 133 ml DAILY PRN [place] CONSTIPATION; Start 03/18/17 at 19:30 Heparin Sodium (Porcine) (Heparin (5000 Units/0.5 ml)) 5,000 unit Q12 SC Last administered on 03/20/17 09:00; Admin Dose 5,000 UNIT; Start 03/18/17 at 21:00 Lorazepam (Ativan) 0.5 mg Q6H PRN IV ANXIETY; Start 03/18/17 at 19:30 Hydralazine HCl (Apresoline) 10 mg Q6H PRN IV ELEVATED BLOOD PRESSURE; Start at 19:30 Nitroglycerin (Nitroglycerin (Sl Tab) 0.4 Mg) 1 tab Q5M PRN SL ANGINA; Start at 19:30 Dextrose (D50w Syringe) 50 ml Q15M PRN IV For BS 50 or less Last administered on 03/19/17 06:31; Admin Dose 50 ML; Start 03/18/17 at 19:30 Dextrose (D50w Syringe) 25 ml Q15M PRN IV BS between 50-70 Last administered on 03/19/17 17:31; Admin Dose 25 ML; Start 03/18/17 at 19:30 Diagnostic Test (Pha) (Accu-Chek) 1 ea Q1H XX Last administered on 03/20/17 09 :03; Admin Dose 1 EA; Start 03/18/17 at 19:30 Guaifenesin 200 mg 200 mg Q4H PRN PO COUGH Last administered on 03/19/17 20:48 ; Admin Dose 200 MG; Start 03/19/17 at 15:30 Potassium Chloride/Dextrose/ Sodium Chloride (KCl/D10/ 0.2%Nacl) 1,020 ml @ 200 mls/hr Q5H6M IV Last administered on 03/20/17 07:45; Admin Dose 200 MLS/HR ; Start 03/19/17 at 19:00 Insulin Glargine (Lantus) 15 unit DAILY@20 SC Last administered on 03/19/17 20 :12; Admin Dose 15 UNIT; Start 03/19/17 at 20:00 Diagnostic Test (Pha) 1 ea 1 ea 02 XX Last administered on 03/20/17 02:12; Admin Dose 1 EA; Start 03/20/17 at 02:00 Magnesium Sulfate/ Sodium Chloride (Magnesium Sulfate/NS) 106 ml @ 35.333 mls/ hr ONCE ONCE IVPB ; Start 03/20/17 at 09:30; Stop 03/20/17 at 12:29; Status SHAHZAD APONTE Mar 20, 2017 09:29
[2017-03-20] MEDS ORDERED: MAGNESIUM SULFATE 3 GM in SOD CHLORIDE 0.9% 100 ML IVPB ONE (10:30)
[2017-03-20] MEDS ORDERED: METOCLOPRAMIDE 10 MG INJ IV PRN (10:30)
[2017-03-20] MEDS ORDERED: TRIMETHOBENZAMIDE 100 MG/ML VIAL IM PRN (10:30)
[2017-03-20] MEDS ORDERED: [UNRECOGNIZED DRUG - REMARK] XX SCH (11:30)
[2017-03-20] MEDS ORDERED: PROMETHAZINE (1.25 MG/ML) 5 ML CUP PO PRN (12:30)
[2017-03-20 12:46] LABS: ANION GAP 16 (8-16); CALCIUM 8.7 mg/dl (8.4-10.2); CARBON DIOXIDE 20 mmol/L (21-31); CHLORIDE 108 mmol/L (97-110); CREATININE 0.53 mg/dl (0.44-1.00); GLUCOSE 123 mg/dl (70-220); POTASSIUM 3.4 mmol/L (3.5-5.1); SODIUM 141 mmol/L (135-144)
[2017-03-20 12:56] LABS: BLOOD UREA NITROGEN < 2 mg/dl (7-20)
[2017-03-20] MEDS ORDERED: GLUCOSE GEL 15 GRAM TUBE PO PRN ×2 (13:00)
[2017-03-20] MEDS ORDERED: GLUCOSE GEL 15 GRAM TUBE BUCCAL PRN (13:00)
[2017-03-20] MEDS ORDERED: GLUCAGON 1 MG INJ IM PRN (13:00)
[2017-03-20] MEDS ORDERED: DEXTROSE 50% 50 ML SYRINGE IV PRN ×2 (13:00)
[2017-03-20] MEDS: SOD CHLORIDE 0.9% 1,000 ML IV SCH (14:36)
[2017-03-20] MEDS ORDERED: [UNRECOGNIZED DRUG - REMARK] XX SCH (15:00)
[2017-03-20 15:12] LABS: MICROALBUMIN 17.6 mg/dL
[2017-03-20 16:34] LABS: ANION GAP 19 (8-16); CALCIUM 8.7 mg/dl (8.4-10.2); CARBON DIOXIDE 23 mmol/L (21-31); CHLORIDE 105 mmol/L (97-110); CREATININE 0.61 mg/dl (0.44-1.00); GLUCOSE 157 mg/dl (70-220); POTASSIUM 3.7 mmol/L (3.5-5.1); SODIUM 143 mmol/L (135-144)
[2017-03-20 16:36] LABS: BLOOD UREA NITROGEN < 2 mg/dl (7-20)
[2017-03-20] MEDS ORDERED: INSULIN ASPART [NOVOLOG] 3 ML PEN SC SCH (17:35)
[2017-03-20] MEDS: INSULIN GLARGINE [LANtus] 3 ML PEN SC SCH (20:58)
--- NOTE | 2017-03-20 21:18 | CONS ---
Date/Time of Note Date/Time of Note DATE: 03/20/17 TIME: 20:44 Assessment/Plan Assessment/Plan Problems: (1) Type 1 diabetes mellitus with ketoacidosis and without coma Status: Resolved Comment: Insulin drip and IV dextrose d/c'ed. (2) Type 1 diabetes mellitus with hyperglycemia Status: Chronic Comment: Now on Lantus 15 units qhs and Novolog 7 units qac plus mild ISS. Will monitor glucose levels to evaluate for effectiveness. Await further DM education. Consultation Date/Type/Reason Admit Date/Time Mar 18, 2017 at 19:09 Initial Consult Date 03/19/17 Type of Consultation: Endocrinology Reason for Consultation DKA Referring Provider: SHAHZAD DECKER 24 HR Interval Summary Constitutional: improved, no complaints Detailed Summary Respiratory: no complaints Cardiovascular: no complaints Gastrointestinal: decreased appetite, nausea Genitourinary: no complaints Musculoskeletal: no complaints Neurologic: No headache Exam/Review of Systems Vital Signs Vitals VS - Last 72 Hours, by Label Date Time Temp Pulse Resp B/P Pulse Ox O2 Delivery O2 Flow Rate FiO2 03/20/17 16:00 98.6 93 14 113/68 100 Room Air 03/20/17 16:00 89 03/20/17 15:00 93 16 106/54 100 Room Air 03/20/17 14:00 81 21 118/78 100 Room Air 03/20/17 13:00 88 16 127/74 100 Room Air 03/20/17 12:00 80 03/20/17 12:00 98.4 82 15 123/80 100 Room Air 03/20/17 11:00 77 13 110/79 100 Room Air 03/20/17 10:00 86 17 120/80 99 Room Air 03/20/17 09:00 85 16 117/79 100 Room Air 03/20/17 08:00 97.9 82 14 115/76 99 Room Air 03/20/17 08:00 83 03/20/17 07:00 79 20 132/85 99 Room Air 03/20/17 06:00 77 15 121/66 100 Room Air 03/20/17 05:00 91 12 118/83 100 Room Air 03/20/17 04:00 84 15 104/88 100 Room Air 03/20/17 04:00 76 03/20/17 03:00 75 12 104/65 100 Room Air 03/20/17 02:00 97 17 101/80 100 Room Air 03/20/17 01:00 90 15 104/78 99 Room Air 03/20/17 00:00 98.6 79 16 103/73 100 Room Air 03/20/17 00:00 75 03/19/17 23:00 85 17 109/72 100 Room Air 03/19/17 22:00 89 17 103/74 100 Room Air 03/19/17 21:00 90 17 122/69 100 Room Air 03/19/17 20:00 98.3 89 17 117/80 100 Room Air 03/19/17 20:00 100 03/19/17 19:00 83 17 111/70 100 Room Air 03/19/17 18:00 88 17 103/69 100 Room Air 03/19/17 17:30 80 27 96/58 100 Room Air 03/19/17 17:00 95 22 113/71 99 Room Air 03/19/17 16:30 88 18 109/70 100 Room Air 03/19/17 16:03 84 03/19/17 16:00 88 18 104/67 99 Room Air 03/19/17 15:30 97.5 88 18 122/72 98 Room Air 03/19/17 14:03 90 16 127/89 99 Room Air 03/19/17 12:11 79 16 111/70 99 Room Air 03/19/17 08:00 98.3 81 16 103/63 99 Room Air 03/19/17 06:30 79 16 96/59 99 Room Air 03/19/17 06:10 80 16 101/52 99 Room Air 03/19/17 04:35 77 16 105/68 99 Room Air 03/19/17 02:35 78 16 116/71 99 Room Air 03/19/17 00:35 94 16 99/72 99 Room Air 03/18/17 22:35 91 16 115/66 99 Room Air 03/18/17 20:30 99.0 77 16 122/73 99 Room Air 17 18:30 99.0 78 16 118/76 99 Room Air 1817 18:13 99.0 78 16 114/76 99 Room Air 18/17 15:18 99.2 03/18/17 14:16 98.5 110 18 140/74 99 VS - Last 72 Hours, by Label Date Time Temp Pulse Resp B/P Pulse Ox O2 Delivery O2 Flow Rate FiO2 03/20/17 16:00 98.6 93 14 113/68 100 Room Air 03/20/17 16:00 89 03/20/17 15:00 93 16 106/54 100 Room Air 03/20/17 14:00 81 21 118/78 100 Room Air 03/20/17 13:00 88 16 127/74 100 Room Air 03/20/17 12:00 80 03/20/17 12:00 98.4 82 15 123/80 100 Room Air 03/20/17 11:00 77 13 110/79 100 Room Air 03/20/17 10:00 86 17 120/80 99 Room Air 03/20/17 09:00 85 16 117/79 100 Room Air 03/20/17 08:00 97.9 82 14 115/76 99 Room Air 03/20/17 08:00 83 03/20/17 07:00 79 20 132/85 99 Room Air 03/20/17 06:00 77 15 121/66 100 Room Air 03/20/17 05:00 91 12 118/83 100 Room Air 03/20/17 04:00 84 15 104/88 100 Room Air 03/20/17 04:00 76 03/20/17 03:00 75 12 104/65 100 Room Air 03/20/17 02:00 97 17 101/80 100 Room Air 03/20/17 01:00 90 15 104/78 99 Room Air 03/20/17 00:00 98.6 79 16 103/73 100 Room Air 03/20/17 00:00 75 03/19/17 23:00 85 17 109/72 100 Room Air 03/19/17 22:00 89 17 103/74 100 Room Air 03/19/17 21:00 90 17 122/69 100 Room Air 03/19/17 20:00 98.3 89 17 117/80 100 Room Air 03/19/17 20:00 100 03/19/17 19:00 83 17 111/70 100 Room Air 03/19/17 18:00 88 17 103/69 100 Room Air 03/19/17 17:30 80 27 96/58 100 Room Air 03/19/17 17:00 95 22 113/71 99 Room Air 03/19/17 16:30 88 18 109/70 100 Room Air 03/19/17 16:03 84 03/19/17 16:00 88 18 104/67 99 Room Air 03/19/17 15:30 97.5 88 18 122/72 98 Room Air 03/19/17 14:03 90 16 127/89 99 Room Air 03/19/17 12:11 79 16 111/70 99 Room Air 03/19/17 08:00 98.3 81 16 103/63 99 Room Air 03/19/17 06:30 79 16 96/59 99 Room Air 03/19/17 06:10 80 16 101/52 99 Room Air 03/19/17 04:35 77 16 105/68 99 Room Air 03/19/17 02:35 78 16 116/71 99 Room Air 03/19/17 00:35 94 16 99/72 99 Room Air 03/18/17 22:35 91 16 115/66 99 Room Air 03/18/17 20:30 99.0 77 16 122/73 99 Room Air 03/18/17 18:30 99.0 78 16 118/76 99 Room Air 03/18/17 18:13 99.0 78 16 114/76 99 Room Air 03/18/17 15:18 99.2 03/18/17 14:16 98.5 110 18 140/74 99 Vital Signs Date Time Temp Pulse Resp B/P Pulse Ox O2 Delivery O2 Flow Rate FiO2 03/20/17 16:00 98.6 93 14 113/68 100 Room Air Intake and Output 03/19/17 03/19/17 03/20/17 15:00 23:00 07:00 Intake Total 428 ml 1656 ml Balance 428 ml 1656 ml Exam Constitutional: alert, oriented, well developed Psych: nl mood/affect, no complaints Respiratory: clear to auscultation, normal air movement Cardiovascular: nl pulses, regular rate and rhythm, No edema, No murmurs/extra sounds, No rub Gastrointestinal: bowel sounds, nl liver, spleen, non-tender, soft, No mass, No rebound or guarding Musculoskeletal: nl extremities to inspection Extremities: normal pulses, No clubbing, No cyanosis, No edema Neurological: SERVER MANAGER II-XII intact, nl mental status, nl speech, nl strength Additional Comments Bedside Glucose - 72 Hours Test 03/18/17 14:54 03/18/17 17:08 03/18/17 18:06 03/18/17 19:32 Bedside Glucose 300mg/dL (70-220) H 291mg/dL (70-220) H 250mg/dL (70-220) H 221mg/dL (70-220) H Test 03/18/17 20:46 03/18/17 22:03 03/18/17 23:47 03/18/17 23:57 Bedside Glucose 189mg/dL (70-220) 145mg/dL (70-220) 130mg/dL (70-220) 156mg/dL (70-220) Test 03/19/17 01:25 03/19/17 02:37 03/19/17 04:35 03/19/17 06:03 Bedside Glucose 120mg/dL (70-220) 130mg/dL (70-220) 108mg/dL (70-220) 76mg/dL (70-220) Test 03/19/17 06:24 03/19/17 06:55 03/19/17 08:10 03/19/17 09:21 Bedside Glucose 68mg/dL (70-220) L 165mg/dL (70-220) 174mg/dL (70-220) 153mg/dL (70-220) Test 03/19/17 11:02 03/19/17 12:22 03/19/17 13:42 03/19/17 15:16 Bedside Glucose 182mg/dL (70-220) 139mg/dL (70-220) 110mg/dL (70-220) 81mg/dL (70-220) Test 03/19/17 16:29 03/19/17 17:26 03/19/17 17:45 03/19/17 18:06 Bedside Glucose 77mg/dL (70-220) 64mg/dL (70-220) L 152mg/dL (70-220) 142mg/dL (70-220) Test 03/19/17 19:02 03/19/17 20:03 03/19/17 21:13 03/19/17 22:13 Bedside Glucose 119mg/dL (70-220) 112mg/dL (70-220) 99mg/dL (70-220) 144mg/dL (70-220) Test 03/19/17 23:18 03/20/17 00:12 03/20/17 01:02 03/20/17 02:10 Bedside Glucose 170mg/dL (70-220) 196mg/dL (70-220) 213mg/dL (70-220) 129mg/dL (70-220) Test 03/20/17 03:22 03/20/17 04:23 03/20/17 05:25 03/20/17 06:18 Bedside Glucose 187mg/dL (70-220) 170mg/dL (70-220) 164mg/dL (70-220) 176mg/dL (70-220) Test 03/20/17 07:17 03/20/17 08:06 03/20/17 09:02 03/20/17 10:03 Bedside Glucose 185mg/dL (70-220) 168mg/dL (70-220) 153mg/dL (70-220) 122mg/dL (70-220) Test 03/20/17 11:07 03/20/17 12:03 03/20/17 13:00 03/20/17 14:05 Bedside Glucose 132mg/dL (70-220) 122mg/dL (70-220) 122mg/dL (70-220) 132mg/dL (70-220) Test 03/20/17 17:55 03/20/17 20:52 Bedside Glucose 188mg/dL (70-220) 117mg/dL (70-220) Results Result Diagram: 03/20/17 0515 03/20/17 1603 Results 24 hrs Laboratory Tests Test 03/19/17 21:13 03/19/17 22:13 03/19/17 23:18 03/20/17 00:12 Bedside Glucose 99 144 170 196 Test 03/20/17 01:02 03/20/17 02:10 03/20/17 03:22 03/20/17 04:23 Bedside Glucose 213 129 187 170 Test 03/20/17 05:15 03/20/17 05:25 03/20/17 06:18 03/20/17 07:17 White Blood Count 3.2 L Red Blood Count 4.37 Hemoglobin 14.1 Hematocrit 39.5 Mean Corpuscular Volume 90.4 Mean Corpuscular Hemoglobin 32.3 Mean Corpuscular Hemoglobin Concent 35.7 Red Cell Distribution Width 11.9 Platelet Count 147 Mean Platelet Volume 11.4 H Neutrophils % 27.5 L Lymphocytes % 59.6 H Monocytes % 11.7 H Eosinophils % 0.3 Basophils % 0.6 Nucleated Red Blood Cells % 0.0 Neutrophils # 0.9 L Lymphocytes # 1.9 Monocytes # 0.4 Eosinophils # 0.0 Basophils # 0.0 Nucleated Red Blood Cells # 0.0 Sodium Level 141 Potassium Level 3.5 Chloride Level 106 Carbon Dioxide Level 22 Anion Gap 17 H Blood Urea Nitrogen < 2 L Creatinine 0.56 Glucose Level 176 Calcium Level 8.7 Phosphorus Level 3.4 # Magnesium Level 1.3 L Bedside Glucose 164 176 185 Test 03/20/17 08:06 03/20/17 09:02 03/20/17 10:03 03/20/17 11:07 Bedside Glucose 168 153 122 132 Test 03/20/17 11:50 03/20/17 12:03 03/20/17 13:00 03/20/17 14:05 Sodium Level 141 Potassium Level 3.4 L Chloride Level 108 Carbon Dioxide Level 20 L Anion Gap 16 Blood Urea Nitrogen < 2 L Creatinine 0.53 Glucose Level 123 # Calcium Level 8.7 Bedside Glucose 122 122 132 Test 03/20/17 16:03 03/20/17 17:55 Sodium Level 143 Potassium Level 3.7 Chloride Level 105 Carbon Dioxide Level 23 Anion Gap 19 H Blood Urea Nitrogen < 2 L Creatinine 0.61 Glucose Level 157 Calcium Level 8.7 Bedside Glucose 188 Medications Medications Current Medications Ondansetron HCl (Zofran Inj) 4 mg Q6H PRN IV NAUSEA AND/OR VOMITING Last administered on 03/20/17t 04:26; Admin Dose 4 MG; Start 03/18/17 at 19:30 Acetaminophen (Tylenol Tab) 650 mg Q6H PRN PO PAIN LEVEL 1-3 OR FEVER; Start at 19:30 Acetaminophen/ Hydrocodone Bitart ([place] (5/325)) 1 tab Q6H PRN PO MODERATE PAIN LEVEL 4-6; Start 03/18/17 at 19:30 Morphine Sulfate (morphine) 2 mg Q4H PRN IV SEVERE PAIN LEVEL 7-10; Start 03/18 at 19:30 Docusate Sodium (Colace) 100 mg Q12H PRN PO CONSTIPATION; Start 03/18/17 at 19: 30 Magnesium Hydroxide (Milk Of Mag) 30 ml DAILY PRN PO CONSTIPATION; Start at 19:30 Sodium Biphosphate/ Sodium Phosphate (Fleet Enema) 133 ml DAILY PRN DC CONSTIPATION; Start 03/18/17 at 19:30 Heparin Sodium (Porcine) (Heparin (5000 Units/0.5 ml)) 5,000 unit Q12 SC Last administered on 03/20/17 09:00; Admin Dose 5,000 UNIT; Start 03/18/17 at 21:00 Lorazepam (Ativan) 0.5 mg Q6H PRN IV ANXIETY; Start 03/18/17 at 19:30 Hydralazine HCl (Apresoline) 10 mg Q6H PRN IV ELEVATED BLOOD PRESSURE; Start at 19:30 Nitroglycerin (Nitroglycerin (Sl Tab) 0.4 Mg) 1 tab Q5M PRN SL ANGINA; Start at 19:30 Dextrose (D50w Syringe) 50 ml Q15M PRN IV For BS 50 or less Last administered on 03/19/17 06:31; Admin Dose 50 ML; Start 03/18/17 at 19:30 Dextrose (D50w Syringe) 25 ml Q15M PRN IV BS between 50-70 Last administered on 03/19/17 17:31; Admin Dose 25 ML; Start 03/18/17 at 19:30 Guaifenesin (Robitussin Liquid Cup) 200 mg Q4H PRN PO COUGH Last administered on 03/19/17 20:48; Admin Dose 200 MG; Start 03/19/17 at 15:30 Insulin Glargine (Lantus) 15 unit DAILY@20 SC Last administered on 03/19/17 20 :12; Admin Dose 15 UNIT; Start 03/19/17 at 20:00 Diagnostic Test (Pha) (Accu-Chek) 1 ea 02 XX Last administered on 03/20/17 02: 12; Admin Dose 1 EA; Start 03/20/17 at 02:00; Status Future hold Trimethobenzamide HCl (Tigan) 200 mg Q6H PRN IM NAUSEA AND/OR VOMITING; Start 03/20/17 at 10:30 Promethazine HCl (Phenergan Liq) 6.25 mg Q4H PRN PO NAUSEA Last administered on 03/20/17 12:05; Admin Dose 6.25 MG; Start 03/20/17 at 12:30 Metoclopramide HCl (Reglan) 10 mg Q6H PRN IV NAUSEA AND/OR VOMITING; Start at 10:30 Miscellaneous Information 1 ea NOTE XX ; Start 03/20/17 at 13:00 Glucose (Glutose) 15 gm Q15M PRN PO DECREASED GLUCOSE; Start 03/20/17 at 13:00 ; Status Future hold Glucose (Glutose) 22.5 gm Q15M PRN PO DECREASED GLUCOSE; Start 03/20/17 at 13: 00; Status Future hold Dextrose (D50w Syringe) 25 ml Q15M PRN IV DECREASED GLUCOSE; Start 03/20/17 at 13:00; Status Future hold Dextrose (D50w Syringe) 50 ml Q15M PRN IV DECREASED GLUCOSE; Start 03/20/17 at 13:00; Status Future hold Glucagon (Glucagen) 1 mg Q15M PRN IM DECREASED GLUCOSE; Start 03/20/17 at 13:00 ; Status Future hold Glucose 15 gm 15 gm Q15M PRN BUCCAL DECREASED GLUCOSE; Start 03/20/17 at 13:00 ; Status Future hold Sodium Chloride (NS) 1,000 ml @ 100 mls/hr Q10H IV Last administered on t 14:36; Admin Dose 100 MLS/HR; Start 03/20/17 at 14:30 SHYANN CELAYA MD Mar 20, 2017 20:54
[2017-03-21] MEDS: SOD CHLORIDE 0.9% 1,000 ML IV SCH ×3 (01:21→12:20)
[2017-03-21] MEDS: ACCU-CHEK XX SCH (02:00)
[2017-03-21 02:40] VITALS: BP 108/55; RESP 18
[2017-03-21 08:06] VITALS: BP 112/57; RESP 17
[2017-03-21] MEDS: HEPARIN 5,000 UNIT/0.5 ML VIAL SC SCH (08:25)
[2017-03-21] MEDS: INSULIN ASPART [NOVOLOG] 3 ML PEN SC SCH ×4 (08:27→12:19)
[2017-03-21 12:24] LABS: ADD SCAN DIFF NO
--- NOTE | 2017-03-21 12:30 | PDOCDIS ---
Discharge Instructions CONDITION Patient Condition: Stable HOME CARE INSTRUCTIONS: Special Diet: CARB CONTROL DIET ACTIVITY: Activity Restrictions: Slowly Increase Activity FOLLOW UP/APPOINTMENTS Follow-up Plan Please take your medications as prescribed. Please follow-up with your bottle gauger in the clinic in the next 1 week. SHAHZAD DECKER Mar 21, 2017 12:30
[2017-03-21 12:32] LABS: BASOPHILS % 0.5 % (0.0-2.0); EOSINOPHILS % 1.1 % (0.0-7.0); HEMATOCRIT 37.4 % (37.0-47.0); HEMOGLOBIN 13.3 g/dl (12.0-16.0); MEAN CORPUSCULAR HEMOGLOBIN 32.2 pg (29.0-33.0); MEAN CORPUSCULAR HGB CONC 35.6 g/dl (32.0-37.0); MEAN CORPUSCULAR VOLUME 90.6 fl (82.0-101.0); MEAN PLATELET VOLUME 11.5 fl (7.4-10.4); MONOCYTE # 0.4 10^3/ul (0.3-0.9); MONOCYTES % 11.6 % (0.0-11.0); NEUTROPHIL # 1.3 10^3/ul (1.6-7.5); NEUTROPHILS % 33.9 % (39.0-77.0); PLATELET COUNT 118 10^3/UL (140-415); RED BLOOD COUNT 4.13 10^6/ul (4.20-5.40); WHITE BLOOD COUNT 3.7 10^3/ul (4.8-10.8)
[2017-03-21] MEDS ORDERED: NOVO3I SC (12:34)
[2017-03-21] MEDS ORDERED: PROM12.510 PO (12:34)
[2017-03-21] MEDS ORDERED: LANT3I SC (12:34)
[2017-03-21 12:35] LABS: LYMPHOCYTES % 52.6 % (15.0-51.0)
--- NOTE | 2017-03-21 12:37 | DS ---
Date/Time of Note Date/Time of Note DATE: 03/21/17 TIME: 12:34 Discharge Summary Admission/Discharge Info Admit Date/Time Mar 18, 2017 at 19:09 Discharge Date/Time Patient Condition: Stable Hx of Present Illness Hospital Course 26 yo female who was sent by her stamp pad maker for eval of meningitis. She c/ o generalized bodyache, headache, neck stiffness. In ER, she was found to be in DKA. Head CT is unremarkable. LP was done and was not consistent with meningitis. she was started on DKA protocol. She was admitted to intensive care unit initially, seen by endocrinology team, her A1c was found to be 11.0. She was awaiting to be seen by administrative asst, but eventually she was able to be transferred out of the intensive care unit. She was switched over to subcutaneous insulin, her sugars remain stable, she was able to ambulate, tolerated p.o. diet. Her CSF studies including cultures were negative for any signs of infection. Her headache symptoms in her neck stiffness symptoms improved as well. She will be discharged home today on a slightly new insulin regimen please see below for full discharge medication list, and follow-up with stamp pad maker in the clinic in the next 1-2 weeks. Home Meds Active Scripts Promethazine Hcl* (Phenergan*) 12.5 Mg Tablet, 12.5 MG PO Q6H Y for NAUSEA AND OR VOMITING, #30 TAB Prov:SHAHZAD DECKER S. 03/21/17 Insulin Glargine* (Lantus*) 100 Unit/Ml Soln, 15 UNIT SC QAM for 30 Days, #1 3 Refills Prov:SHAHZAD DECKER S. 03/21/17 Insulin Aspart* (Novolog Insulin Pen*) 100 Unit/Ml Soln, 7 UNIT SC WITH MEALS for 30 Days, #1 3 Refills Prov:VAN DECKERP S. 03/21/17 Reported Medications Ondansetron Hcl* (Ondansetron Hcl*) 8 Mg Tablet, 8 MG PO TID Y for NAUSEA AND OR VOMITING, TAB 03/18/17 Insulin Glargine,Hum.rec.anlog (Josefina Almanzar) 300 Unit/1 Ml Insuln.pen, 18 UNIT SQ QAM 03/18/17 Discontinued Reported Medications Azithromycin* (Azithromycin*) 250 Mg Tablet, 250 MG PO DAILY, #4 TAB TAKE 2 TAB -1 DAY 1 TAB DAILY 03/18/17 Insulin Aspart* (Novolog Insulin Pen*) 100 Unit/Ml Soln, 0 SC .SLIDING SCALE AC , EA 3-4 UNITS TID WITH MEALS 03/18/17 Primary Care Provider Care Physician No Primary Time spent on discharge: > 30 minutes Pending Labs Laboratory Tests Test 03/20/17 13:00 03/20/17 14:05 03/20/17 16:03 03/20/17 17:55 Bedside Glucose 122mg/dL (70-220) 132mg/dL (70-220) 188mg/dL (70-220) Sodium Level 143mmol/L (135-144) Potassium Level 3.7mmol/L (3.5-5.1) Chloride Level 105mmol/L (97-110) Carbon Dioxide Level 23mmol/L (21-31) Anion Gap 19 (8-16) Blood Urea Nitrogen < 2mg/dl (7-20) Creatinine 0.61mg/dl (0.44-1.00) Glucose Level 157mg/dl (70-220) Calcium Level 8.7mg/dl (8.4-10.2) Test 03/20/17 20:52 03/21/17 08:05 03/21/17 11:56 03/21/17 12:10 Bedside Glucose 117mg/dL (70-220) 189mg/dL (70-220) 111mg/dL (70-220) White Blood Count Pending Red Blood Count Pending Hemoglobin Pending Hematocrit Pending Mean Corpuscular Volume Pending Mean Corpuscular Hemoglobin Pending Mean Corpuscular Hemoglobin Concent Pending Red Cell Distribution Width Pending Platelet Count Pending Mean Platelet Volume Pending SHAHZAD DECKER Mar 21, 2017 12:36
[2017-03-21 12:56] LABS: ANION GAP 16 (8-16); CALCIUM 8.6 mg/dl (8.4-10.2); CARBON DIOXIDE 21 mmol/L (21-31); CHLORIDE 111 mmol/L (97-110); CREATININE 0.53 mg/dl (0.44-1.00); GLUCOSE 111 mg/dl (70-220); POTASSIUM 3.4 mmol/L (3.5-5.1); SODIUM 145 mmol/L (135-144)
[2017-03-21 12:57] LABS: BLOOD UREA NITROGEN < 2 mg/dl (7-20)
[2017-03-21] MEDS ORDERED: POTASSIUM CHLORIDE (SR) 20 MEQ TAB PO STA (13:47)
--- NOTE | 2017-03-21 13:56 | CONS ---
Date/Time of Note Date/Time of Note DATE: 03/21/17 TIME: 13:54 Assessment/Plan Assessment/Plan Problems: (1) Type 1 diabetes mellitus with hyperglycemia Status: Chronic Comment: Excellent glycemic control. Cont. current regimen on d/c. Ok for pt. to be d/c'ed on this regimen from my standpoint. Consultation Date/Type/Reason Admit Date/Time Mar 18, 2017 at 19:09 Initial Consult Date 03/19/17 Type of Consultation: Endocrinology Reason for Consultation DKA Referring Provider: SHAHZAD DECKER 24 HR Interval Summary Constitutional: improved, no complaints Detailed Summary Respiratory: cough Cardiovascular: no complaints Gastrointestinal: nausea (but improved) Genitourinary: no complaints Musculoskeletal: no complaints Neurologic: No headache Exam/Review of Systems Vital Signs Vitals VS - Last 72 Hours, by Label Date Time Temp Pulse Resp B/P Pulse Ox O2 Delivery O2 Flow Rate FiO2 03/21/17 08:06 97.9 85 17 112/57 97 03/21/17 02:40 98.0 80 18 108/55 98 03/20/17 21:30 98.0 90 17 107/60 99 03/20/17 16:00 98.6 93 14 113/68 100 Room Air 03/20/17 16:00 89 03/20/17 15:00 93 16 106/54 100 Room Air 03/20/17 14:00 81 21 118/78 100 Room Air 03/20/17 13:00 88 16 127/74 100 Room Air 03/20/17 12:00 80 03/20/17 12:00 98.4 82 15 123/80 100 Room Air 03/20/17 11:00 77 13 110/79 100 Room Air 03/20/17 10:00 86 17 120/80 99 Room Air 03/20/17 09:00 85 16 117/79 100 Room Air 03/20/17 08:00 97.9 82 14 115/76 99 Room Air 03/20/17 08:00 83 03/20/17 07:00 79 20 132/85 99 Room Air 03/20/17 06:00 77 15 121/66 100 Room Air 03/20/17 05:00 91 12 118/83 100 Room Air 03/20/17 04:00 84 15 104/88 100 Room Air 03/20/17 04:00 76 03/20/17 03:00 75 12 104/65 100 Room Air 03/20/17 02:00 97 17 101/80 100 Room Air 03/20/17 01:00 90 15 104/78 99 Room Air 03/20/17 00:00 98.6 79 16 103/73 100 Room Air 03/20/17 00:00 75 03/19/17 23:00 85 17 109/72 100 Room Air 03/19/17 22:00 89 17 103/74 100 Room Air 03/19/17 21:00 90 17 122/69 100 Room Air 03/19/17 20:00 98.3 89 17 117/80 100 Room Air 03/19/17 20:00 100 03/19/17 19:00 83 17 111/70 100 Room Air 03/19/17 18:00 88 17 103/69 100 Room Air 03/19/17 17:30 80 27 96/58 100 Room Air 03/19/17 17:00 95 22 113/71 99 Room Air 03/19/17 16:30 88 18 109/70 100 Room Air 03/19/17 16:03 84 03/19/17 16:00 88 18 104/67 99 Room Air 03/19/17 15:30 97.5 88 18 122/72 98 Room Air 03/19/17 14:03 90 16 127/89 99 Room Air 03/19/17 12:11 79 16 111/70 99 Room Air 03/19/17 08:00 98.3 81 16 103/63 99 Room Air 03/19/17 06:30 79 16 96/59 99 Room Air 03/19/17 06:10 80 16 101/52 99 Room Air 03/19/17 04:35 77 16 105/68 99 Room Air 03/19/17 02:35 78 16 116/71 99 Room Air 03/19/17 00:35 94 16 99/72 99 Room Air 03/18/17 22:35 91 16 115/66 99 Room Air 17 20:30 99.0 77 16 122/73 99 Room Air 17 18:30 99.0 78 16 118/76 99 Room Air 18/17 18:13 99.0 78 16 114/76 99 Room Air 18/17 15:18 99.2 1817 14:16 98.5 110 18 140/74 99 Vital Signs Date Time Temp Pulse Resp B/P Pulse Ox O2 Delivery O2 Flow Rate FiO2 03/21/17 08:06 97.9 85 17 112/57 97 03/20/17 16:00 Room Air Intake and Output 03/20/17 03/20/17 03/21/17 15:00 23:00 07:00 Intake Total 1855 ml 620 ml 1400 ml Balance 1855 ml 620 ml 1400 ml Exam Constitutional: alert, oriented, well developed Respiratory: clear to auscultation, normal air movement Cardiovascular: nl pulses, regular rate and rhythm, No edema, No murmurs/extra sounds, No rub Gastrointestinal: bowel sounds, nl liver, spleen, non-tender, soft, No mass, No rebound or guarding Musculoskeletal: nl extremities to inspection Extremities: normal pulses, No clubbing, No cyanosis, No edema Neurological: [employer] II-XII intact, nl mental status, nl speech, nl strength Additional Comments Bedside Glucose - 72 Hours Test 03/18/17 14:54 03/18/17 17:08 03/18/17 18:06 03/18/17 19:32 Bedside Glucose 300mg/dL (70-220) H 291mg/dL (70-220) H 250mg/dL (70-220) H 221mg/dL (70-220) H Test 03/18/17 20:46 03/18/17 22:03 03/18/17 23:47 03/18/17 23:57 Bedside Glucose 189mg/dL (70-220) 145mg/dL (70-220) 130mg/dL (70-220) 156mg/dL (70-220) Test 03/19/17 01:25 03/19/17 02:37 03/19/17 04:35 03/19/17 06:03 Bedside Glucose 120mg/dL (70-220) 130mg/dL (70-220) 108mg/dL (70-220) 76mg/dL (70-220) Test 03/19/17 06:24 03/19/17 06:55 03/19/17 08:10 03/19/17 09:21 Bedside Glucose 68mg/dL (70-220) L 165mg/dL (70-220) 174mg/dL (70-220) 153mg/dL (70-220) Test 03/19/17 11:02 03/19/17 12:22 03/19/17 13:42 03/19/17 15:16 Bedside Glucose 182mg/dL (70-220) 139mg/dL (70-220) 110mg/dL (70-220) 81mg/dL (70-220) Test 03/19/17 16:29 03/19/17 17:26 03/19/17 17:45 03/19/17 18:06 Bedside Glucose 77mg/dL (70-220) 64mg/dL (70-220) L 152mg/dL (70-220) 142mg/dL (70-220) Test 03/19/17 19:02 03/19/17 20:03 03/19/17 21:13 03/19/17 22:13 Bedside Glucose 119mg/dL (70-220) 112mg/dL (70-220) 99mg/dL (70-220) 144mg/dL (70-220) Test 03/19/17 23:18 03/20/17 00:12 03/20/17 01:02 03/20/17 02:10 Bedside Glucose 170mg/dL (70-220) 196mg/dL (70-220) 213mg/dL (70-220) 129mg/dL (70-220) Test 03/20/17 03:22 03/20/17 04:23 03/20/17 05:25 03/20/17 06:18 Bedside Glucose 187mg/dL (70-220) 170mg/dL (70-220) 164mg/dL (70-220) 176mg/dL (70-220) Test 03/20/17 07:17 03/20/17 08:06 03/20/17 09:02 03/20/17 10:03 Bedside Glucose 185mg/dL (70-220) 168mg/dL (70-220) 153mg/dL (70-220) 122mg/dL (70-220) Test 03/20/17 11:07 03/20/17 12:03 03/20/17 13:00 03/20/17 14:05 Bedside Glucose 132mg/dL (70-220) 122mg/dL (70-220) 122mg/dL (70-220) 132mg/dL (70-220) Test 03/20/17 17:55 03/20/17 20:52 03/21/17 08:05 03/21/17 11:56 Bedside Glucose 188mg/dL (70-220) 117mg/dL (70-220) 189mg/dL (70-220) 111mg/dL (70-220) Results Result Diagram: 03/21/17 1210 03/21/17 1210 Results 24 hrs Laboratory Tests Test 03/20/17 14:05 03/20/17 16:03 03/20/17 17:55 03/20/17 20:52 Bedside Glucose 132 188 117 Sodium Level 143 Potassium Level 3.7 Chloride Level 105 Carbon Dioxide Level 23 Anion Gap 19 H Blood Urea Nitrogen < 2 L Creatinine 0.61 Glucose Level 157 Calcium Level 8.7 Test 03/21/17 08:05 03/21/17 11:56 03/21/17 12:10 Bedside Glucose 189 111 White Blood Count 3.7 L Red Blood Count 4.13 L Hemoglobin 13.3 Hematocrit 37.4 Mean Corpuscular Volume 90.6 Mean Corpuscular Hemoglobin 32.2 Mean Corpuscular Hemoglobin Concent 35.6 Red Cell Distribution Width 12.0 Platelet Count 118 L Mean Platelet Volume 11.5 H Neutrophils % 33.9 L Lymphocytes % 52.6 H Monocytes % 11.6 H Eosinophils % 1.1 Basophils % 0.5 Neutrophils # 1.3 L Lymphocytes # 2.0 Monocytes # 0.4 Eosinophils # 0.0 Basophils # 0.0 Nucleated Red Blood Cells # 0.0 Sodium Level 145 H Potassium Level 3.4 L Chloride Level 111 H Carbon Dioxide Level 21 Anion Gap 16 Blood Urea Nitrogen < 2 L Creatinine 0.53 Glucose Level 111 # Calcium Level 8.6 Medications Medications Current Medications Ondansetron HCl (Zofran Inj) 4 mg Q6H PRN IV NAUSEA AND/OR VOMITING Last administered on 03/20/17t 04:26; Admin Dose 4 MG; Start 03/18/17 at 19:30 Acetaminophen (Tylenol Tab) 650 mg Q6H PRN PO PAIN LEVEL 1-3 OR FEVER; Start at 19:30 Acetaminophen/ Hydrocodone Bitart ([place] (5/325)) 1 tab Q6H PRN PO MODERATE PAIN LEVEL 4-6; Start 03/18/17 at 19:30 Morphine Sulfate (morphine) 2 mg Q4H PRN IV SEVERE PAIN LEVEL 7-10; Start 03/18 at 19:30 Docusate Sodium (Colace) 100 mg Q12H PRN PO CONSTIPATION; Start 03/18/17 at 19: 30 Magnesium Hydroxide (Milk Of Mag) 30 ml DAILY PRN PO CONSTIPATION; Start at 19:30 Sodium Biphosphate/ Sodium Phosphate (Fleet Enema) 133 ml DAILY PRN ID CONSTIPATION; Start 03/18/17 at 19:30 Heparin Sodium (Porcine) (Heparin (5000 Units/0.5 ml)) 5,000 unit Q12 SC Last administered on 03/21/17 08:25; Admin Dose 5,000 UNIT; Start 03/18/17 at 21:00 Lorazepam (Ativan) 0.5 mg Q6H PRN IV ANXIETY; Start 03/18/17 at 19:30 Hydralazine HCl (Apresoline) 10 mg Q6H PRN IV ELEVATED BLOOD PRESSURE; Start at 19:30 Nitroglycerin (Nitroglycerin (Sl Tab) 0.4 Mg) 1 tab Q5M PRN SL ANGINA; Start at 19:30 Dextrose (D50w Syringe) 50 ml Q15M PRN IV For BS 50 or less Last administered on 03/19/17 06:31; Admin Dose 50 ML; Start 03/18/17 at 19:30 Dextrose (D50w Syringe) 25 ml Q15M PRN IV BS between 50-70 Last administered on 03/19/17 17:31; Admin Dose 25 ML; Start 03/18/17 at 19:30 Guaifenesin (Robitussin Liquid Cup) 200 mg Q4H PRN PO COUGH Last administered on 03/19/17 20:48; Admin Dose 200 MG; Start 03/19/17 at 15:30 Insulin Glargine (Lantus) 15 unit DAILY@20 SC Last administered on 03/20/17 20 :58; Admin Dose 15 UNIT; Start 03/19/17 at 20:00 Diagnostic Test (Pha) (Accu-Chek) 1 ea 02 XX Last administered on 03/20/17 02: 12; Admin Dose 1 EA; Start 03/20/17 at 02:00; Status Future hold Trimethobenzamide HCl (Tigan) 200 mg Q6H PRN IM NAUSEA AND/OR VOMITING; Start 03/20/17 at 10:30 Promethazine HCl (Phenergan Liq) 6.25 mg Q4H PRN PO NAUSEA Last administered on 03/20/17 12:05; Admin Dose 6.25 MG; Start 03/20/17 at 12:30 Metoclopramide HCl (Reglan) 10 mg Q6H PRN IV NAUSEA AND/OR VOMITING; Start at 10:30 Miscellaneous Information 1 ea NOTE XX ; Start 03/20/17 at 13:00 Glucose (Glutose) 15 gm Q15M PRN PO DECREASED GLUCOSE; Start 03/20/17 at 13:00 ; Status Future hold Glucose (Glutose) 22.5 gm Q15M PRN PO DECREASED GLUCOSE; Start 03/20/17 at 13: 00; Status Future hold Dextrose (D50w Syringe) 25 ml Q15M PRN IV DECREASED GLUCOSE; Start 03/20/17 at 13:00; Status Future hold Dextrose (D50w Syringe) 50 ml Q15M PRN IV DECREASED GLUCOSE; Start 03/20/17 at 13:00; Status Future hold Glucagon (Glucagen) 1 mg Q15M PRN IM DECREASED GLUCOSE; Start 03/20/17 at 13:00 ; Status Future hold Glucose 15 gm 15 gm Q15M PRN BUCCAL DECREASED GLUCOSE; Start 03/20/17 at 13:00 ; Status Future hold Sodium Chloride (NS) 1,000 ml @ 100 mls/hr Q10H IV Last administered on 12:20; Admin Dose 100 MLS/HR; Start 03/20/17 at 14:30 SHYANN CELAYA MD Mar 21, 2017 13:56
[2017-03-21] MEDS ORDERED: LORAZEPAM 0.5 MG TAB PO PRN (14:30)
[2017-03-21 14:54] VITALS: BP_SYST 109; BP_SYST 112; BP_DIAS 57; BP_DIAS 58; RESP 17; RESP 18
== END 2017-03-21 16:56 | disposition home or self-care (01) | DRG 639 ==
LOC: FTE 14:11 → ICU 19:09 → PP2 03-20 17:07
PROVIDERS: ADMIT Hospitalist; ATTEND Hospitalist
PROC: 009U3ZX Drainage of Spinal Canal, Percutaneous Approach, Diagnostic (ICD-10-PCS; principal; 2017-03-18)
DX: E10.10 Type 1 diabetes mellitus with ketoacidosis without coma (principal); M43.6 Torticollis; R51 Headache; Z79.4 Long term (current) use of insulin
CPT/HCPCS: 36415; 36600; 70450; 71010; 80048; 80053; 80061; 81001; 82010; 82043; 82803; 82945; 82962; 83036; 83690; 83735; 84100; 84157; 84439; 84443; 85025; 85610; 86308; 87070; 87400; 89051; 96361; 96365; 96372; 96375; J1644; J1815; J2405; J2765; J3475; J3480; J7030; J7042; J7050; J7120